=== PATIENT | male | born 1940 | race Caucasian/White ===

== ENCOUNTER → 2018-04-20 09:48 | Outpatient (CLI) | payer MEDICARE, OTHER, SELFPAY ==
[2018-04-20 12:01] LABS: Alanine Aminotransferase 32 IU/L (21-72); Albumin 4.8 g/dL (3.5-5.0); Albumin Globulin Ratio 1.3 (1.0-2.8); Alkaline Phosphatase 45 U/L (38-126); Aspartate Aminotransferase 31 IU/L (17-59); BUN Creatinine Ratio 15.8 (6-22); Bilirubin Total 0.6 mg/dL (0.2-1.3); Blood Urea Nitrogen 19 mg/dL (9-20); Calcium 10.1 mg/dL (8.4-10.2); Carbon Dioxide 28 mmol/L (22-32); Chloride 103 mmol/L (98-107); Cholesterol 173 mg/dL (140-199); Estimated Glomerular Filt Rate 58.7 mL/min (>60); Globulin 3.7 g/dL (1.7-4.1); Glucose 99 mg/dL (80-110); HDL Cholesterol 45 mg/dL (40-60); HEMOLYSIS 18 (0-50); LDL Cholesterol Calculated 95 mg/dL (<100); Potassium 5.2 mmol/L (3.4-5.1); Sodium 144 mmol/L (137-145); Total Protein 8.5 g/dL (6.3-8.2); Triglycerides 165 mg/dL (35-150)
== END ==
PROVIDERS: PCP Family Medicine; Visit Provider Family Medicine
DX: E78.2 Mixed hyperlipidemia (principal); I10 Essential (primary) hypertension
CPT/HCPCS: 36415; 80053; 80061

== ENCOUNTER 2018-09-19 14:15 | Emergency (ER) | payer MEDICARE, SELFPAY ==
[2018-09-19 14:18] VITALS: BP 191/63; PULSE 54; RESP 20; TEMP 36.7; O2SAT 98; BMI 30.7
--- NOTE | 2018-09-19 15:09 | ED.SOB ---
HPI - SOB/Dyspnea General Chief Complaint: Shortness of Breath/Dyspnea Stated Complaint: SOB Time Seen by Provider: 09/19/18 15:09 Source: patient Mode of arrival: ambulatory Limitations: no limitations History of Present Illness Patient is a 78-year-old male who is here for evaluation for 1 year of shortness of breath. Patient states that he went to go see his primary doctor today which he could not get in to see her. He states he went over to the walk-in clinic and he was told to come here to the emergency department because we ?had better test ?he states that this is what he was told by the walk-in clinic. He states that he has had shortness of breath when he exerts himself for the past year. Denies any chest pain. He states that he does feel like his symptoms have been worsening over the past several weeks to months. He is able to lay flat at night. Has been taking his medications. Related Data Home Medications Medication Instructions Recorded Confirmed aspirin 81 mg PO QDAY #30 tab 03/02/16 04/20/18 atenolol 25 mg PO DAILY 09/19/18 09/19/18 finasteride 5 mg PO DAILY 09/19/18 09/19/18 lisinopril 20 mg PO DAILY 09/19/18 09/19/18 simvastatin [Zocor] 20 mg PO DAILY 09/19/18 09/19/18 Previous Rx's Medication Instructions Recorded tamsulosin 0.4 mg capsule 0.4 mg PO BID #180 cap 08/16/18 Allergies Allergy/AdvReac Type Severity Reaction Status Date / Time No Known Drug Allergies Allergy Verified 04/20/18 08:58 Review of Systems Constitutional Denies fever(s) and Denies headache(s) ENT Ears, Nose, Mouth, and Throat: Denies headache(s) Cardiovascular Denies chest pain and Reports dyspnea on exertion Respiratory Reports dyspnea on exertion Gastrointestinal Gastrointestinal: Denies nausea and Denies vomiting Genitourinary Denies dysuria Musculoskeletal Denies myalgias and Denies arthralgias Integumentary/Breasts Denies rash Neurologic Denies headache(s) Hematologic/Lymphatic Denies easy bleeding and Denies easy bruising [facility] Medical History BPH (benign prostatic hyperplasia) (Acute) Hypertension (Acute) Social History Smoking Status: Former smoker Tobacco: How many years used: 20 alcohol intake: current (Rare) Social History Smoking Status: Former smoker Tobacco: How many years used: 20 alcohol intake: current (Rare) Exam Initial Vital Signs Initial Vital Signs: Vital Signs Temperature 98.0 F 09/19/18 14:18 Pulse Rate 54 L 09/19/18 14:18 Respiratory Rate 20 09/19/18 14:18 Blood Pressure 191/63 H 09/19/18 14:18 Pulse Oximetry 98 09/19/18 14:18 Const General: cooperative, comfortable, well developed, well groomed and No acute distress Orientation: alert, awake and oriented x3 HENMT Head: normal to inspection and normocephalic Resp Effort & Inspection: normal respiratory effort Auscultation: clear to auscultation bilaterally Cardio Rate: regular rate Rhythm: regular rhythm Pulses: radial pulses present GI Inspection: non-distended Palpation: soft, No firm and No tender Skin Lesions: no lesions Rashes: no rashes Neuro General: alert, awake and oriented x3 Cognition: normal cognition Speech: speech normal Extrem General: normal to inspection, capillary refill normal and No edema Psych Appearance: grossly normal and well kempt Course Orders Ordered: ED Orders 09/19/18 14:23 EKG-12 Lead Stat 09/19/18 15:26 XR chest 1V Stat 09/19/18 15:40 B Type Natriuretic Peptide Stat Basic Metabolic Panel Stat Complete Blood Count AUTO DIFF Stat Troponin I Stat Vital Signs - 8 hr 09/19/18 14:18 Temperature 98.0 F Pulse Rate 54 L Respiratory Rate 20 Blood Pressure 191/63 H Pulse Oximetry 98 MDM - SOB/Dyspnea Lab Data Attestation: I reviewed the patient's lab results. Result diagrams: 09/19/18 15:40 09/19/18 15:40 Lab Results 09/19/18 09/19/18 09/19/18 Range/Units 15:40 15:40 15:40 WBC 8.4 (4.5-11.0) X10^3/uL RBC 4.73 (4.5-5.9) X10^6/uL Hgb 14.9 (13.5-17.5) g/dL Hct 42.5 (41-53) % MCV 89.9 (80-100) fL MCH 31.5 (26-34) PG MCHC 35.0 (30-36) % RDW 13.7 (11.6-14.8) % Plt Count 133 L (150-400) X10^3/uL Neut % (Auto) 70.5 (50-75) % Lymph % (Auto) 20.8 L (25-40) % [place] % (Auto) 6.6 (3-14) % Eos % (Auto) 1.4 L (2-4) % Baso % (Auto) 0.7 (0-2) % Neut # (Auto) 5900 (8424-5145) /uL Lymph # (Auto) 1700 (5330-2917) /uL [place] # (Auto) 600 (0-900) /uL Eos # (Auto) 100 (0-450) /uL Baso # (Auto) 100 (0-100) /uL Sodium 139 (137-145) mmol/L Potassium 4.5 (3.4-5.1) mmol/L Chloride 105 (98-107) mmol/L Carbon Dioxide 24 (22-32) mmol/L BUN 22 H (9-20) mg/dL Creatinine 1.30 H (0.66-1.25) mg/dL Estimated GFR 53.5 L (>60) mL/min BUN/Creatinine Ratio 16.9 (6-22) Glucose 85 (80-110) mg/dL Calcium 9.4 (8.4-10.2) mg/dL Troponin I < 0.012 (0.01-0.034) ng/mL B-Natriuretic Peptide 108 H (<100) Imaging Data Chest x-ray: Radiologist's impression: [address] [address] XRay Report Signed Patient: Major Mills RMR#: [id number] : 1Acct:[id number] Age/Sex: 78 / MDate of Service: 09/19/18 Loc: ED Accession Number: [id number] Procedure: XR chest 1V Ordering Provider: Pacheco Sheehan D.O. PROCEDURE: XR CHEST 1V INDICATIONS: Shortness of breath TECHNIQUE: One view of the chest was acquired. COMPARISON: [facility], , CHEST 2 VIEW, 08/11/2017, 13:00. FINDINGS: Surgical changes and devices: None. Lungs and pleura: Prominent perihilar interstitial markings are identified in no focal consolidation, effusion, or pneumothorax is evident. Mediastinum: Mediastinal contours appear normal. Heart size is normal. There is aortic atherosclerosis. Bones and chest wall: No suspicious bony lesions. Overlying soft tissues appear unremarkable. IMPRESSION: Possible mild vascular congestion. No definite pneumonia. Dictated by: Mauri Da Silva M.D. on 09/19/2018 at 14:57 Approved by: Mauri Da Silva M.D. on 09/19/2018 at 15:03 ECG Data Attestation: I personally reviewed and interpreted this ECG as follows: Prior ECG tracings: not available for review Interpretation: Sinus bradycardia Ventricular rate of 52 Normal axis Normal intervals Normal QRS Normal QTC No ST T wave changes MDM Narrative Medical decision making narrative: Patient has had symptoms for the past year. No signs of pneumonia. BNP is unremarkable. lungs are clear. Not hypoxic or tachycardic in the ER. Will hold on further workup for now. Informed the patient he needed to talk with his primary doctor about obtaining pulmonary function test and/or an echocardiogram. Patient was given return precautions. He expressed understanding and agreement with plan. Discharge Plan Departure Patient Disposition: Home Clinical Impression: Dyspnea on exertion Instructions: DI for Shortness of Breath, How to Manage Shortness of Breath Activity Restrictions/Additional Instructions: I recommend that you contact your primary care doctor to discuss the indications for pulmonary function testing and or an echocardiogram. Continue all of your other medications as directed. Return to the emergency department for any new or worsening symptoms Prescriptions: No Action aspirin 81 MG tablet,delayed release (DR/EC) 81 mg PO QDAY Qty: 30 RF: 0 tamsulosin [Flomax] 0.4 mg capsule 0.4 mg PO BID Qty: 180 RF: 0 lisinopril 20 mg tablet 20 mg PO DAILY RF: 0 atenolol 25 mg tablet 25 mg PO DAILY RF: 0 simvastatin [Zocor] 20 mg tablet 20 mg PO DAILY RF: 0 finasteride 5 mg tablet 5 mg PO DAILY RF: 0 Referrals: Devorah Chaudhry DO [Primary Care Provider] -
--- NOTE | 2018-09-19 15:26 | DI.RAD.S_ITS ---
PROCEDURE: XR CHEST 1V INDICATIONS: Shortness of breath TECHNIQUE: One view of the chest was acquired. COMPARISON: [facility], , CHEST 2 VIEW, 08/11/2017, 13:00. FINDINGS: Surgical changes and devices: None. Lungs and pleura: Prominent perihilar interstitial markings are identified in no focal consolidation, effusion, or pneumothorax is evident. Mediastinum: Mediastinal contours appear normal. Heart size is normal. There is aortic atherosclerosis. Bones and chest wall: No suspicious bony lesions. Overlying soft tissues appear unremarkable. IMPRESSION: Possible mild vascular congestion. No definite pneumonia. Dictated by: Mauri Da Silva M.D. on 09/19/2018 at 14:57 Approved by: Mauri Da Silva M.D. on 09/19/2018 at 15:03
[2018-09-19 15:59] LABS: Add Manual Diff / Slide Review NO; Basophils Absolute Auto 100 /uL (0-100); Basophils Percent Auto 0.7 % (0-2); Eosinophils Absolute Auto 100 /uL (0-450); Eosinophils Percent Auto 1.4 % (2-4); Hematocrit 42.5 % (41-53); Hemoglobin 14.9 g/dL (13.5-17.5); Lymphocytes Absolute Auto 1700 /uL (1100-4500); Lymphocytes Percent Auto 20.8 % (25-40); Mean Corpuscular Hemoglobin 31.5 PG (26-34); Mean Corpuscular Volume 89.9 fL (80-100); Monocytes Absolute Auto 600 /uL (0-900); Monocytes Percent Auto 6.6 % (3-14); Neutrophils Absolute Auto 5900 /uL (1500-7000); Neutrophils Percent Auto 70.5 % (50-75); Platelet Count 133 X10^3/uL (150-400); Red Blood Cell Count 4.73 X10^6/uL (4.5-5.9); Red Cell Distribution Width 13.7 % (11.6-14.8); White Blood Cell Count 8.4 X10^3/uL (4.5-11.0)
[2018-09-19 16:19] LABS: B Type Natriuretic Peptide 108 (<100)
[2018-09-19 16:23] LABS: BUN Creatinine Ratio 16.9 (6-22); Blood Urea Nitrogen 22 mg/dL (9-20); Calcium 9.4 mg/dL (8.4-10.2); Carbon Dioxide 24 mmol/L (22-32); Chloride 105 mmol/L (98-107); Estimated Glomerular Filt Rate 53.5 mL/min (>60); Glucose 85 mg/dL (80-110); HEMOLYSIS 39 (0-50); Potassium 4.5 mmol/L (3.4-5.1); Sodium 139 mmol/L (137-145)
[2018-09-19 16:36] LABS: Troponin I < 0.012 ng/mL (0.01-0.034)
[2018-09-19 17:00] VITALS: BP 197/55; PULSE 52; RESP 18; O2SAT 98
== END 2018-09-19 17:14 | disposition home or self-care (01) ==
PROVIDERS: Emergency Provider Emergency Medicine; Family Provider Family Medicine; PCP Family Medicine
DX: R06.09 Other forms of dyspnea (principal)
CPT/HCPCS: 36591; 71045; 80048; 83880; 84484; 85025; 93005; 93010; 99282; 99285

== ENCOUNTER → 2018-09-26 09:30 | Outpatient (CLI) | payer MEDICARE, SELFPAY ==
--- NOTE | 2018-09-26 09:32 | DI.US.S_ITS ---
PROCEDURE: US CAROTID DOPPLER BI INDICATIONS: PVD TECHNIQUE: Color and pulse Doppler interrogation was performed of both carotid systems, with image documentation and velocity measurements. COMPARISON: [facility], , CAROTID ARTERY DOPPLER BILAT, 03/24/2017, 10:18. [facility], , CAROTID ARTERY DOPPLER BILAT, 10/08/2015, 11:12. FINDINGS: Stenosis calculations are based on SRU (Society of Radiologists in Ultrasound) criteria. Right side: Brachial blood pressure: 150/77 mm Hg. Common carotid artery peak systolic velocity: 51 cm/sec. Internal carotid artery peak systolic velocity: 120 cm/sec. Internal carotid artery end diastolic velocity: 40 cm/sec. External carotid artery peak systolic velocity: 515 cm/sec. ICA/CCA peak systolic ratio: 3.2. Benson scale imaging description: Heavy scattered plaque. Percent internal carotid artery stenosis: Less than 50%. Vertebral artery: Not visualized. Left side: Brachial blood pressure: 164/75 mm Hg. Common carotid artery peak systolic velocity: 112 cm/sec. Internal carotid artery peak systolic velocity: 150 cm/sec. Internal carotid artery end diastolic velocity: 33 cm/sec. External carotid artery peak systolic velocity: 173 cm/sec. ICA/CCA peak systolic ratio: 1.0. Benson scale imaging description: Heavy scattered plaque. Percent internal carotid artery stenosis: 50-69% stenosis is. Vertebral artery: Flow direction is antegrade. IMPRESSION: 1. Stable 50-69% left internal carotid artery stenosis. 2. Stable less than 50% right internal carotid artery stenosis. * Dictated by: Jeronimo Juarez [facility] Interpreted: Evaristo Srivastava MD on 09/26/2018 at 11:42 Approved by: Evaristo Srivastava M.D. on 09/26/2018 at 11:47
== END ==
PROVIDERS: PCP Family Medicine; Visit Provider Family Medicine
DX: I73.9 Peripheral vascular disease, unspecified (principal); I65.23 Occlusion and stenosis of bilateral carotid arteries
CPT/HCPCS: 93880

== ENCOUNTER → 2018-10-26 10:28 | Outpatient (CLI) | payer MEDICARE, SELFPAY ==
--- NOTE | 2018-11-16 17:00 | PM.PFT.1 ---
Pulmonary Function Test Referral & Results Date Patient Seen: 10/26/18 Requesting provider: Devorah Chaudhry Results: The spirometry demonstrates an FVC of 3.67 L which is 85% of predicted. The FEV1 was measured at 1.61 L which is 52% of predicted. The FEV1/FVC ratio was 44 which is 60% of predicted. Following the administration of bronchodilator there was 12% improvement in FEV1 and 42% improvement in FEF 25-75%. Lung volumes show an SVC of 3.60 L which is 78% of predicted. The diffusing capacity was measured at 15.22 which is 45% of predicted. No hemoglobin value was provided, so no correction for potential anemia could be made, if appropriate. The maximum voluntary ventilation was reduced Interpretation: This study demonstrates moderately severe obstructive lung disease based on reduction in FEV1. There is evidence of improvement following bronchodilator administration There is also mild restrictive lung disease present based on reduction SVC There is more significant disease at the capillary alveolar level based on reduction in diffusing capacity
== END ==
PROVIDERS: PCP Family Medicine; Visit Provider Family Medicine
DX: R06.09 Other forms of dyspnea (principal)
CPT/HCPCS: 94060; 94726; 94729

== ENCOUNTER → 2018-10-31 15:32 | Outpatient (CLI) | payer MEDICARE, SELFPAY ==
--- NOTE | 2018-10-31 15:32 | DI.ECHO.S_ITS ---
[facility]---------+ [facility] +---------+ : : [address] : : : [place], [place] : : : : [id number] : : : : Phone: [phone] Echocardiogram Report + + :Name: MARK PEÑALOZA Study Date: 10/31/2018 Height: 71 in : :[facility] Exam Location: IS Weight: 220 lb : : Gender: Male BSA: 2.2 m2 : :: 1940 Age: 78 yrs BP: 170/80 mmHg: :Reason For Study: PHILLIPS : : Performed By: Maru Page : :Referring: DARVIN ALANIS : + + Interpretation Summary 1) Normal left ventricular size, wall motion, and systolic function (EF 65- 70%). 2) Normal right ventricular size and function. 3) No significant valvular abnormalities. 4) Pulmonary artery pressures cannot be estimated because of the lack of a measurable TR jet velocity. 5) Hypertension present during the study (BP 170/80mmHg). 6) No prior Echo available for comparison. Procedure: A two-dimensional transthoracic echocardiogram with color flow and Doppler was performed. The study quality was technically adequate. There is no prior echocardiogram noted for this patient. The patient was in normal sinus rhythm during the exam. Left Ventricle: The left ventricle is normal in size. Left ventricular wall thickness is at the upper limits of normal. The ejection fraction is estimated to be 65-70%. Left ventricular systolic function is normal without focal wall motion abnormalities. Diastolic parameters suggest a relaxation abnormality of the left ventricle, consistent with probable normal filling pressures. Right Ventricle: The right ventricle is normal in size and function. Atria: The left atrium is moderately dilated. Right atrial size is normal. There is no Doppler evidence for an interatrial shunt. Mitral Valve: The mitral valve is normal in structure and function. There is no mitral regurgitation noted. Aortic Valve: The aortic valve is trileaflet. The aortic valve is slightly calcified. The aortic valve opens well. There is no aortic valve stenosis. There is trace aortic regurgitation. Tricuspid Valve: The tricuspid valve is normal in structure and function. There is a trace or physiologic amount of tricuspid regurgitation. Pulmonary artery pressures cannot be estimated because of the lack of a measurable TR jet velocity. Pulmonic Valve: The pulmonic valve is not well visualized. There is a trace or physiologic amount of pulmonic regurgitation. Great Vessels: The aortic root is normal size. The ascending aorta is at the upper limits of normal in size. The pulmonary artery is not well visualized, but is probably normal size. The IVC is of normal diameter and collapses greater than 50% with a sniff. This suggests a low right atrial pressure of 3 mm Hg. Pericardium/ Pleura There is no pericardial effusion. There is no pleural effusion. MMode/2D Measurements & Calculations LVIDd: 4.9 cm Ao root diam: 3.7 cm LVIDs: 2.6 cm asc Aorta Diam: 3.5 cm FS: 47.1 % IVSd: 1.0 cm LVPWd: 1.2 cm LV crawford. diameter/BSA (cm/m^2): 2.2 LV sys. diameter/BSA (cm/m^2): 1.2 LA A2 area: 22.1 cm2 RA long axis: 5.1 cm LA A4 area: 25.1 cm2 RA area: 15.0 cm2 LA length (vol): 5.7 cm RA vol: 37.7 ml LA vol: 82.6 ml RA : 17.2 ml/m2 LA vol index: 37.6 ml/m2 IVC diam: 1.7 cm RVD1 (basal): 3.8 cm TAPSE: 2.3 cm Doppler Measurements & Calculations Ao V2 max: 129.2 cm/sec LVOT Max Jason: 105.1 cm/sec Ao V2 mean: 97.3 cm/sec LV V1 max P.4 mmHg Ao max P.7 mmHg LV V1 VTI: 25.9 cm Ao mean P.0 mmHg sev ratio: 0.94 Ao V2 VTI: 27.5 cm MV E max jason: 56.7 cm/sec PA V2 max: 79.1 cm/sec MV A max jason: 82.6 cm/sec PA V2 mean: 51.0 cm/sec MV E/A: 0.69 PA mean P.2 mmHg Med Peak E' Jason: 4.3 cm/sec PA Accel Time: 0.07 sec E/E' med: 13.1 Lat Peak E' Jason: 6.4 cm/sec E/E' lat: 8.9 E/e' average: 11.0 MV dec time: 0.25 sec MV P1/2t: 72.6 msec MV P1/2t max jason: 56.5 cm/sec MVA(P1/2t): 3.0 cm2 Reading Physician:07:09 PM
== END ==
PROVIDERS: PCP Family Medicine; Visit Provider Nurse Practitioner Family
DX: R06.09 Other forms of dyspnea (principal); I77.89 Other specified disorders of arteries and arterioles
CPT/HCPCS: 93306

== ENCOUNTER → 2019-02-27 07:59 | Outpatient (CLI) | payer MEDICARE, SELFPAY ==
--- NOTE | 2019-02-27 08:01 | DI.RAD.S_ITS ---
PROCEDURE: XR CERVICAL SPINE 2V OR 3V INDICATIONS: Cervical impingement TECHNIQUE: 3 view(s) of the cervical spine were acquired. COMPARISON: None. FINDINGS: Bones: There is minimal anterolisthesis of C2 on C3. Decreased intervertebral disc space and degenerative endplate changes throughout cervical spine is seen more prominent at C3-4 and C4-5 levels. There is no acute compression fracture. Bilateral uncinate hypertrophic changes are seen throughout cervical spine. The lateral masses of C1 appear intact on the odontoid view. No suspicious bony lesions. Soft tissues: No prevertebral soft tissue swelling. IMPRESSION: Degenerative disc disease and bilateral facet hypertrophic changes throughout cervical spine. No acute compression fracture. Minimal anterolisthesis of C2 on C3. Dictated by: Francisco Ny M.D. on 02/27/2019 at 11:11 Approved by: Francisco Ny M.D. on 02/27/2019 at 11:26
== END ==
PROVIDERS: PCP Family Medicine; Visit Provider Family Medicine
DX: M47.812 Spondylosis without myelopathy or radiculopathy, cervical region (principal); M50.31 Other cervical disc degeneration, high cervical region
CPT/HCPCS: 72040

== ENCOUNTER → 2019-03-07 12:59 | Outpatient (CLI) | payer MEDICARE, SELFPAY ==
--- NOTE | 2019-03-07 12:59 | DI.MRI.S_ITS ---
PROCEDURE: MR CERVICAL SPINE WO CON INDICATIONS: falls TECHNIQUE: Noncontrast sagittal T1 spin echo and T2 fast spin echo, sagittal STIR, foraminal oblique sagittal T2 fast spin echo, and axial gradient echo or T2 fast spin echo through the cervical spine. COMPARISON: None. FINDINGS: Image quality: Excellent. Alignment and Curvature: There is straightening of normal cervical lordosis. No spondylolisthesis is seen. Bone Marrow: There is bony fusion at C5-C7 levels. No gross marrow edema. No acute compression fracture. Spinal Cord: Visualized spinal cord has normal size and signal. No cerebellar tonsillar herniation. Paraspinous Soft Tissues: No paravertebral masses. Prevertebral soft tissues are normal in thickness. C2-C3: Normal appearance. C3-C4: Decreased intervertebral disc space and degenerative endplate changes are seen. There is broad-based disc bulge and superimposed central disc herniation. Bilateral uncinate hypertrophic changes are seen. There is moderate central canal stenosis and severe bilateral neuroforaminal narrowing. C4-C5: Decreased intervertebral disc space and degenerative endplate changes are seen. Broad-based disc bulge and bilateral uncinate hypertrophic changes are noted causing severe central canal stenosis and bilateral neuroforaminal narrowing. C5-C6: Complete bony fusion is noted at this level. Prominent dorsal marginal osteophyte formation is seen causing [id number] central canal stenosis and right worse than left bilateral neuroforaminal narrowing. C6-C7: Complete bony fusion is seen at this level. Prominent dorsal osteophyte formation at this level is seen. Bilateral facet hypertrophic changes also noted. There is moderate central canal stenosis and right worse than left bilateral neuroforaminal narrowing. C7-T1: Decreased intervertebral disc space and degenerative endplate changes are seen. Central disc herniation and bilateral facet hypertrophic changes are noted causing moderate central canal stenosis and [id number] bilateral neural foramina narrowing. IMPRESSION: 1. Complete bony fusion at C5-C7 levels. No marrow edema. No acute compression fracture or spondylolisthesis. 2. No Chiari malformation. No abnormal cervical spinal cord signal. 3. Degenerative disc bulge and bilateral facet hypertrophic changes at C3-4, C4-5 and C7-T1 levels causing moderate to severe central canal stenosis and bilateral neuroforaminal narrowing as above. 4. Prominent dorsal osteophyte formation and bilateral facet hypertrophic changes at C5-6 and C6-7 levels causing moderate central canal stenosis and bilateral neural foramina narrowing. Dictated by: Francisco Ny M.D. on 03/07/2019 at 17:56 Approved by: Francisco Ny M.D. on 03/07/2019 at 18:01
== END ==
PROVIDERS: PCP Family Medicine; Visit Provider Family Medicine
DX: M47.812 Spondylosis without myelopathy or radiculopathy, cervical region (principal); M43.22 Fusion of spine, cervical region; M50.11 Cervical disc disorder with radiculopathy, high cervical region; M48.02 Spinal stenosis, cervical region; Z91.81 History of falling
CPT/HCPCS: 72141

== ENCOUNTER → 2019-04-29 08:05 | Outpatient (CLI) | payer MEDICARE, SELFPAY ==
[2019-04-29 08:40] LABS: Alanine Aminotransferase 22 IU/L (<50); Albumin 4.4 g/dL (3.5-5.0); Albumin Globulin Ratio 1.4 (1.0-2.8); Alkaline Phosphatase 47 U/L (38-126); Aspartate Aminotransferase 27 IU/L (17-59); BUN Creatinine Ratio 15.7 (6-22); Bilirubin Total 0.5 mg/dL (0.2-1.3); Blood Urea Nitrogen 22 mg/dL (9-20); Calcium 9.9 mg/dL (8.4-10.2); Carbon Dioxide 28 mmol/L (22-32); Chloride 107 mmol/L (98-107); Cholesterol 193 mg/dL (140-199); Globulin 3.2 g/dL (1.7-4.1); Glucose 110 mg/dL (80-110); HDL Cholesterol 42 mg/dL (40-60); HEMOLYSIS < 15 (0-50); LDL Cholesterol Calculated 125 mg/dL (<100); Potassium 4.7 mmol/L (3.4-5.1); Sodium 142 mmol/L (137-145); Total Protein 7.6 g/dL (6.3-8.2); Triglycerides 132 mg/dL (35-150)
[2019-04-29 10:23] LABS: Creatinine Urine Random 113.1 mg/dL
[2019-04-29 10:43] LABS: Microalbumi Creatinin Ratio Ur 195.4 ug/mg CR (<30); Microalbumin Urine Random 22.1 mg/dL (0-1.6)
== END ==
PROVIDERS: Family Provider Family Medicine; PCP Family Medicine; Visit Provider Physician Assistant
DX: E78.2 Mixed hyperlipidemia (principal); I10 Essential (primary) hypertension; I73.9 Peripheral vascular disease, unspecified; N40.1 Benign prostatic hyperplasia with lower urinary tract symptoms; R35.0 Frequency of micturition
CPT/HCPCS: 36415; 80053; 80061; 82043; 82570

== ENCOUNTER → 2019-06-04 07:21 | Outpatient (CLI) | payer MEDICARE, SELFPAY ==
--- NOTE | 2019-06-04 07:22 | DI.US.S_ITS ---
PROCEDURE: US RENAL COMPLETE INDICATIONS: FOLLOW UP CYST TECHNIQUE: Real-time scanning was performed of the kidneys and bladder, with image documentation. COMPARISON: [facility], CT, IVP (ABD & PEL WWO CONTRAST), 05/18/2016, 11:13. FINDINGS: Kidneys: Kidneys are normal in size. Right kidney measures 13.0 cm long; left kidney measures 13.1 cm long. Right renal cortical thickness is 1.1 cm; left renal cortical thickness is 1.1 cm. Renal cortical echotexture is normal. No hydronephrosis or nephrolithiasis. No suspicious solid mass lesions. There is a right midpole cyst which measures 2.7 x 2.5 x 2.0 cm (this cyst measured 2.5 x 2.5 x 2.4 cm on the comparison CT dated 05/18/16), and a left midpole cyst which measures 0.9 x 0.8 x 1.0 cm (previously measured 0.8 x 0.9 x 1.0 cm on the comparison CT from 2015). Bladder: Pre-void bladder volume is 108 mL. Post-void residual is 14 mL. Pre-void images demonstrate no intraluminal masses or stones. On pre-void images, a lateral ureteral jets are noted with color Doppler interrogation. (Of note, ureteral jets may not be detectable in up to 25% of cases due to insufficient differences in specific gravity between ureteral and bladder urine). Miscellaneous: No free pelvic fluid. IMPRESSION: 1. No hydronephrosis or nephrolithiasis. 2. Overall similar size of the bilateral renal cysts when compared with prior CT dated 05/18/16 when accounting for variation in imaging modality. Dictated by: Crys Bucio M.D. on 06/04/2019 at 13:26 Approved by: Crys Bucio M.D. on 06/04/2019 at 13:30
== END ==
PROVIDERS: PCP Family Medicine; Visit Provider Family Medicine
DX: N28.1 Cyst of kidney, acquired (principal)
CPT/HCPCS: 76770

== ENCOUNTER → 2019-08-12 09:32 | Outpatient (CLI) | payer MEDICARE, SELFPAY ==
[2019-08-12 09:44] LABS: Bacteria Urine None Seen
[2019-08-12 10:02] LABS: Hematocrit 43.8 % (41-53); Hemoglobin 15.2 g/dL (13.5-17.5)
[2019-08-12 10:38] LABS: BUN Creatinine Ratio 19.1 (6-22); Blood Urea Nitrogen 21 mg/dL (9-20); Calcium 9.5 mg/dL (8.4-10.2); Carbon Dioxide 27 mmol/L (22-32); Chloride 106 mmol/L (98-107); Estimated Glomerular Filt Rate > 60.0 mL/min (>60); Glucose 107 mg/dL (80-110); HEMOLYSIS < 15 (0-50); Potassium 4.5 mmol/L (3.4-5.1); Sodium 143 mmol/L (137-145)
[2019-08-12 12:20] LABS: Appearance Urine UA CLEAR; Bilirubin Urine UA NEGATIVE (NEGATIVE); Color Urine UA YELLOW; Glucose Urine UA NEGATIVE (Negative); Ketones Urine UA NEGATIVE (NEGATIVE); Leukocyte Esterase Urine UA NEGATIVE (NEGATIVE); Nitrite Urine UA NEGATIVE (Negative); Occult Blood Urine UA NEGATIVE (Negative); Protein Urine UA 1+ (Negative); Specific Gravity Urine UA 1.025 (1.000-1.035); Urobilinogen Urine UA 0.2 E.U./dL (0.2)
[2019-08-12 12:52] LABS: RBC Urine 0-1/HPF (0-5/HPF); Squamous Epithelial Cell Urine 0-1 /HPF (0-5/HPF); WBC Urine 0-1/HPF (0-5/HPF)
[2019-08-12 12:53] LABS: Culture Indicated Urine Cult Not Indicated
[2019-08-12 15:27] LABS: Creatinine Urine Random 112.4 mg/dL; Protein (Total) Urine Random 44 mg/dL (0-12); Protein Creatinine Ratio Urine 0.39 GRAM/24H
[2019-08-15 14:23] LABS: Albumin 73 %; Protein/ Creatinine Ratio 452 mg/g creat (22-128); Total Urine Protein 48 mg/dL (5-25); Urine Creatinine, Random 106 mg/dL (20-320)
[2019-08-15 15:29] LABS: Albumin 4.1 g/dL (3.8-4.8); Alpha 1 Globulin 0.3 g/dL (0.2-0.3); Alpha 2 Globulin 0.7 g/dL (0.5-0.9); Beta 1 Globulin 0.4 g/dL (0.4-0.6); Gamma Globulin 0.9 g/dL (0.8-1.7)
[2019-08-16 07:32] LABS: Parathyroid Hormone Int 41 pg/mL (14-64)
== END ==
PROVIDERS: PCP Family Medicine; Referring Provider Student in an Organized Health Care Education/Training Program; Visit Provider Student in an Organized Health Care Education/Training Program
DX: N05.9 Unspecified nephritic syndrome with unspecified morphologic changes (principal); D64.9 Anemia, unspecified; N25.81 Secondary hyperparathyroidism of renal origin; D47.2 Monoclonal gammopathy; N30.00 Acute cystitis without hematuria; R80.9 Proteinuria, unspecified
CPT/HCPCS: 80048; 81001; 82570; 83970; 84155; 84156; 84165; 84166; 85014; 85018; 86335; 87086

== ENCOUNTER → 2019-10-10 12:02 | Outpatient (CLI) | payer MEDICARE, SELFPAY ==
--- NOTE | 2019-10-10 12:04 | DI.MRI.S_ITS ---
PROCEDURE: MR CERVICAL SPINE WO CON INDICATIONS: Progressive neck discomfort, history of cervical fusion TECHNIQUE: Noncontrast sagittal T1 spin echo and T2 fast spin echo, sagittal STIR, foraminal oblique sagittal T2 fast spin echo, and axial gradient echo or T2 fast spin echo through the cervical spine. COMPARISON: [facility], CR, XR CERVICAL SPINE 2V OR 3V, 02/27/2019, 7:59. [facility], MR, MR CERVICAL SPINE WO CON, 03/07/2019, 13:17. FINDINGS: Image quality: This examination is limited by involuntary motion artifact. Alignment and Curvature: There is straightening of the normal cervical lordosis. No focal AP alignment abnormality is seen. Bone Marrow: Marrow demonstrates normal overall signal. Spinal Cord: Visualized spinal cord has normal size and signal. No cerebellar tonsillar herniation. Paraspinous Soft Tissues: No paravertebral masses. Prevertebral soft tissues are normal in thickness. Vertebral body fusion can be seen C5-C7, as before. C2-C3: Mild loss of disc height is seen. Loss of disc signal is seen. Moderate disc osteophyte complex is seen, which is eccentric to the right. There is moderate left-sided and moderate right-sided neural foraminal narrowing seen. There is moderate to severe left-sided and moderate right-sided neural foraminal narrowing seen. Mild central canal narrowing is seen. When comparison is made with the prior examination, these findings are similar. C3-C4: Moderate to severe loss of disc height and disc signal can be seen. Reactive marrow endplate changes are seen, which are hyperintense on T1-weighted and T2-weighted imaging and most consistent with fatty metaplasia (Modic type II changes). Moderate to prominent disc osteophyte complex is seen. Moderate facet hypertrophy is seen, left worse than right. There is moderate to severe bilateral neural foraminal narrowing seen. Moderate central canal narrowing is seen. There is associated mass effect upon the ventral spinal cord. No significant change from the prior. C4-C5: Moderate to severe loss of disc height and disc signal can be seen. Reactive marrow endplate changes are seen, which are hyperintense on T1-weighted and T2-weighted imaging and most consistent with fatty metaplasia (Modic type II changes). Moderate to prominent disc osteophyte complex is seen. Uncovertebral joint hypertrophy is seen at this level. Moderate facet joint hypertrophy is seen. Moderate to severe bilateral neural foraminal narrowing can be seen. Moderate to severe central canal narrowing is seen, position mass effect upon the ventral spinal cord, as on series 5 image 24. Slight progression compared to the prior examination. C5-C6: Vertebral body fusion is seen at this level. Moderate disc osteophyte complex is seen, which is eccentric to the right. There is a disc osteophyte protrusion seen within the right lateral recess and extending into the right foraminal region, as on series 5 image 29. There is at least moderate right-sided and mild left-sided neural foraminal narrowing seen. Moderate to severe central canal narrowing is seen, with associated mass effect upon the ventral spinal cord. No significant change from the prior. C6-C7: Vertebral body fusion is seen at this level. Moderate disc osteophyte complex is seen, with a moderate central disc osteophyte protrusion. At least moderate bilateral neural foraminal narrowing is seen. Moderate central canal narrowing is seen, with associated ventral cord flattening. Stable from the prior study. C7-T1: Moderate disc osteophyte complex is seen, with a central disc osteophyte protrusion. At least moderate facet hypertrophy is seen at this level. No significant neural foraminal narrowing is seen. Moderate central canal narrowing is seen, with mild mass effect upon the ventral spinal cord. No significant change from the prior. IMPRESSION: C5-C7 vertebral body fusion. Multiple levels of prominent cervical spine degenerative change are seen, which are slightly progressed at C4-C5 level compared to 2019, yet otherwise appears similar. Dictated by: Telly Vick M.D. on 10/10/2019 at 12:12 Approved by: Telly Vick M.D. on 10/10/2019 at 12:19
== END ==
PROVIDERS: PCP Family Medicine; Referring Provider Family Medicine; Visit Provider Family Medicine
DX: M54.2 Cervicalgia (principal); M47.812 Spondylosis without myelopathy or radiculopathy, cervical region; M43.02 Spondylolysis, cervical region; Z98.1 Arthrodesis status
CPT/HCPCS: 72141

== ENCOUNTER 2019-11-15 14:25 | Emergency (ER) | payer MEDICARE, SELFPAY ==
--- NOTE | 2019-11-15 14:31 | ED.GENADULT ---
HPI - General Adult General Chief complaint: Arrhythmia/Palpitations Stated complaint: low pulse/ dizziness/ per phys Time Seen by Provider: 11/15/19 14:31 Source: patient and family () Mode of arrival: Ambulatory Limitations: no limitations History of Present Illness HPI narrative: Patient is a 79-year-old male. Here for evaluation of lightheadedness and bradycardia and shortness of breath on exertion. Patient has had issues with bradycardia in the past. He has been on atenolol in the past. Approximately 1 month ago stopped his atenolol by his primary provider to see whether not this would improve his bradycardia issues which seem to be more of a problem in the morning then in the afternoon. This did not appear to stop his symptoms. He was started on amlodipine. He did state that after starting on the amlodipine he felt better for short period of time but really over the past several days/weeks has noticed that he has had more dyspnea on exertion and lightheaded with sitting upper standing. Has not passed out. No chest pain. No lower extremity swelling. Today he went to his primary care doctor's office to get his blood pressure checked because he felt that his symptoms were worsening. After having his blood pressure checked he was sent to the emergency department for evaluation. Related Data Home Medications Medication Instructions Recorded Confirmed aspirin 81 mg PO QDAY #30 tab 03/02/16 10/28/19 Previous Rx's Medication Instructions Recorded simvastatin 20 mg tablet 20 mg PO DAILY #90 tab 05/30/19 albuterol sulfate 90 mcg/actuation 2 puff INHALATION Q4-6H PRN #8 gram 06/06/19 aerosol inhaler tamsulosin 0.4 mg capsule 0.4 mg PO BID #180 cap 07/15/19 finasteride 5 mg tablet 5 mg PO DAILY #90 tab 07/29/19 amlodipine 2.5 mg tablet 2.5 mg PO BID #180 tab 10/22/19 lisinopril 20 mg tablet 20 mg PO DAILY #90 tab 10/22/19 lisinopril 20 1 tab PO DAILY #90 tab 10/22/19 mg-hydrochlorothiazide 12.5 mg tablet Allergies Allergy/AdvReac Type Severity Reaction Status Date / Time No Known Drug Allergies Allergy Verified 10/28/19 08:22 Review of Systems Constitutional Constitutional: Denies fever(s), Denies frequent falls and Denies headache(s) ENT Ears, Nose, Mouth, and Throat: Denies headache(s) and Denies sore throat Cardiovascular Cardiovascular: Denies chest pain, Denies rapid heart rate, Denies irregular heart rhythm, Reports lightheadedness and Reports dyspnea on exertion Comments: Slow heart rate Respiratory Respiratory: Denies cough and Reports dyspnea on exertion Gastrointestinal Gastrointestinal: Denies abdominal pain, Denies change in bowel habits, Denies diarrhea and Denies nausea Genitourinary Genitourinary: Denies dysuria Genitourinary: Denies dysuria Musculoskeletal Musculoskeletal: Denies arthralgias and Denies deformity Integumentary/Breasts Skin/Breast: Denies rash Neurologic Neurologic: Denies frequent falls and Denies headache(s) Hematologic/Lymphatic Hematologic/Lymphatic: Denies easy bleeding and Denies easy bruising Allergic/Immunologic Allergic/Immunologic: Denies urticaria Patient History Medical History BPH (benign prostatic hyperplasia) (Acute) Bradycardia (Acute) Hypertension (Acute) Social History Smoking Status: Former smoker Tobacco: How many years used: 20 alcohol intake: current Smoking Status: Former smoker alcohol intake frequency: holidays/special occasions only Substance Use Type: does not use Exam Initial Vital Signs Initial Vital Signs: Vital Signs Temperature 98.6 F 11/15/19 14:32 Pulse Rate 41 L 11/15/19 14:32 Respiratory Rate 16 11/15/19 14:32 Blood Pressure 180/81 H 11/15/19 14:32 Pulse Oximetry 98 11/15/19 14:32 Const General: cooperative, comfortable and well developed Limitations: mental status not altered [facility] Head: normal to inspection and normocephalic Resp Effort & Inspection: normal respiratory effort Auscultation: clear to auscultation bilaterally Cardio Rate: bradycardic Rhythm: regular rhythm Pulses: radial pulses present GI Inspection: non-distended Palpation: soft and No firm Back/Spine/Pelvis Back: normal to inspection Skin Lesions: no lesions Rashes: no rashes Neuro General: patient alert, patient awake and patient oriented x3 Cognition: normal cognition Speech: speech normal Extrem General: normal to inspection and capillary refill normal Psych Appearance: grossly normal and well kempt Scores G[facility] Bandera coma scale eye opening: Spontaneous Miguel coma scale verbal response: Orientated Bandera coma scale motor response: Obey commands Miguel coma scale total score: 15 Course Orders Ordered: ED Orders 11/15/19 14:28 EKG-12 Lead Stat 11/15/19 14:37 Complete Blood Count AUTO DIFF Stat Comprehensive Metabolic Panel Stat Lipase Stat Partial Thromboplastin Time Stat Prothrombin Time INR Stat Troponin I Stat 11/15/19 14:54 EKG-12 Lead Stat Sodium Chloride (Normal Saline 0.9%) 1,000 mls @ 125 mls/hr IV CONT KRISHAN Last Admin: 11/15/19 14:54 Dose: 125 mls/hr Documented by: SRAVANTHI Vital Signs Vital signs: Vital Signs - 8 hr 11/15/19 14:32 11/15/19 15:01 Temperature 98.6 F Pulse Rate 41 L 63 Respiratory Rate 16 16 Blood Pressure 180/81 H Blood Pressure [Left Arm] 134/85 Pulse Oximetry 98 97 Medical Decision Making Lab Data Lab results reviewed: Yes I reviewed the patient's lab results. Result diagrams: 11/15/19 14:37 11/15/19 14:37 Labs: Lab Results 11/15/19 11/15/19 11/15/19 Range/Units 14:37 14:37 14:37 WBC 7.6 (4.5-11.0) X10^3/uL RBC 4.44 L (4.5-5.9) X10^6/uL Hgb 14.3 (13.5-17.5) g/dL Hct 39.8 L (41-53) % MCV 89.8 (80-100) fL MCH 32.1 (26-34) PG MCHC 35.8 (30-36) % RDW 13.1 (11.6-14.8) % Plt Count 148 L (150-400) X10^3/uL Neut % (Auto) 66.1 (50-75) % Lymph % (Auto) 24.2 L (25-40) % Reagan % (Auto) 6.8 (3-14) % Eos % (Auto) 1.9 L (2-4) % Baso % (Auto) 1.0 (0-2) % Neut # (Auto) 5000 (4117-0207) /uL Lymph # (Auto) 1800 (5113-2556) /uL Reagan # (Auto) 500 (0-900) /uL Eos # (Auto) 100 (0-450) /uL Baso # (Auto) 100 (0-100) /uL PT 13.0 H (10.1-12.7) SECONDS INR 1.1 (0.9-1.3) APTT 34 (26.4-36.2) SECONDS Sodium 139 (137-145) mmol/L Potassium 4.7 (3.4-5.1) mmol/L Chloride 108 H (98-107) mmol/L Carbon Dioxide 19 L (22-32) mmol/L BUN 46 H (9-20) mg/dL Creatinine 1.70 H (0.66-1.25) mg/dL Estimated GFR 39.2 L (>60) mL/min BUN/Creatinine Ratio 27.1 H (6-22) Glucose 121 H (80-110) mg/dL Calcium 9.6 (8.4-10.2) mg/dL Total Bilirubin 0.6 (0.2-1.3) mg/dL AST 27 (17-59) IU/L ALT 22 (<50) IU/L Alkaline Phosphatase 42 (38-126) U/L Troponin I 0.020 (0.01-0.034) ng/mL Total Protein 7.8 (6.3-8.2) g/dL Albumin 4.5 (3.5-5.0) g/dL Globulin 3.3 (1.7-4.1) g/dL Albumin/Globulin Ratio 1.4 (1.0-2.8) Lipase 120 (23-300) U/L ECG Data Attestation: I personally reviewed and interpreted this ECG as follows: Prior ECG tracings: not available for review Interpretation: Third-degree heart block Ventricular rate of 41 QRS 113 milliseconds Repeat EKG Sinus rhythm Ventricular rate is 63 Normal QRS Normal QTC No ST T wave changes MDM Narrative Medical decision making narrative: Patient arrived in a third-degree heart block. However was not hypotensive. Was mentating without problems. While he was waiting in the emergency department he did revert back to a sinus rhythm with a heart rate in the 60s. His blood pressure improved to a systolic in the 130s. Discussed the case with Dr. Downey with cardiology at [facility] who agrees the patient needs to be transferred for pacemaker placement. While waiting for hospitalist call Back patient stood up to use bedside urinal and again reverted back to third-degree heart block. Again was not hypotensive. Was mentating without problems. Was not hypoxic. Reported no chest pain. I discussed the case with Dr. Deal with hospitalist service at [facility] who accepts the patient for transport. Patient is currently stable for transport. Will continue to monitor. We have not had to give him atropine nor any pacing. Discussed the transfer with the patient. He expressed understanding agreement. Discharge Plan Departure Patient Disposition: [facility] Clinical Impression: Heart block AV third degree Hypertension Qualifiers: Hypertension type: unspecified Qualified Code(s): I10 - Essential (primary) hypertension Prescriptions: No Action albuterol sulfate 90 mcg/actuation HFA aerosol inhaler 2 puff INHALATION Q4-6H PRN (Reason: shortness of breath) Qty: 8 RF: 0 aspirin 81 MG tablet,delayed release (DR/EC) 81 mg PO QDAY Qty: 30 RF: 0 simvastatin [Zocor] 20 mg tablet 20 mg PO DAILY Qty: 90 RF: 1 tamsulosin [Flomax] 0.4 mg capsule 0.4 mg PO BID Qty: 180 RF: 0 finasteride 5 mg tablet 5 mg PO DAILY Qty: 90 RF: 1 amlodipine 2.5 mg tablet 2.5 mg PO BID Qty: 180 RF: 1 lisinopril 20 mg tablet 20 mg PO DAILY Qty: 90 RF: 3 lisinopril-hydrochlorothiazide 20-12.5 mg tablet 1 tab PO DAILY Qty: 90 RF: 3 Referrals: Deep Braswell, [Primary Care Provider] -
[2019-11-15 14:32] VITALS: BP 180/81; PULSE 41; RESP 16; TEMP 37; O2SAT 98; BMI 28.7
[2019-11-15 14:44] LABS: Add Manual Diff / Slide Review NO; Basophils Absolute Auto 100 /uL (0-100); Eosinophils Absolute Auto 100 /uL (0-450); Eosinophils Percent Auto 1.9 % (2-4); Hematocrit 39.8 % (41-53); Hemoglobin 14.3 g/dL (13.5-17.5); Lymphocytes Absolute Auto 1800 /uL (1100-4500); Lymphocytes Percent Auto 24.2 % (25-40); Mean Corpuscular HGB Conc 35.8 % (30-36); Mean Corpuscular Hemoglobin 32.1 PG (26-34); Mean Corpuscular Volume 89.8 fL (80-100); Monocytes Absolute Auto 500 /uL (0-900); Monocytes Percent Auto 6.8 % (3-14); Neutrophils Absolute Auto 5000 /uL (1500-7000); Neutrophils Percent Auto 66.1 % (50-75); Platelet Count 148 X10^3/uL (150-400); Red Blood Cell Count 4.44 X10^6/uL (4.5-5.9); Red Cell Distribution Width 13.1 % (11.6-14.8); White Blood Cell Count 7.6 X10^3/uL (4.5-11.0)
[2019-11-15 14:51] LABS: INR 1.1 (0.9-1.3)
[2019-11-15 14:54] LABS: PTT Partial Thromboplastin Tim 34 SECONDS (26.4-36.2)
[2019-11-15] MEDS: SODIUM CHLORIDE 0.9% 1,000 ML 125 ML IV (14:54)
[2019-11-15 14:58] LABS: Alanine Aminotransferase 22 IU/L (<50); Albumin 4.5 g/dL (3.5-5.0); Albumin Globulin Ratio 1.4 (1.0-2.8); Alkaline Phosphatase 42 U/L (38-126); Aspartate Aminotransferase 27 IU/L (17-59); BUN Creatinine Ratio 27.1 (6-22); Bilirubin Total 0.6 mg/dL (0.2-1.3); Blood Urea Nitrogen 46 mg/dL (9-20); Calcium 9.6 mg/dL (8.4-10.2); Carbon Dioxide 19 mmol/L (22-32); Chloride 108 mmol/L (98-107); Estimated Glomerular Filt Rate 39.2 mL/min (>60); Globulin 3.3 g/dL (1.7-4.1); Glucose 121 mg/dL (80-110); HEMOLYSIS 17 (0-50); Lipase 120 U/L (23-300); Potassium 4.7 mmol/L (3.4-5.1); Sodium 139 mmol/L (137-145); Total Protein 7.8 g/dL (6.3-8.2)
[2019-11-15 15:01] VITALS: BP 134/85; PULSE 63; RESP 16; O2SAT 97
--- NOTE | 2019-11-15 15:21 | PC.NURSE ---
1500; pt noted to have transitioned himself to NSR 60's. MD made aware. repeat EKG obtained. transition strip in chart.
[2019-11-15 16:00] VITALS: BP 135/64; PULSE 57; O2SAT 99
--- NOTE | 2019-11-15 16:18 | PC.NURSE ---
Pt converted back into a 3rd degree block while moving to void. pt denies symptoms at this time. MD at bedside. Pt aware of transfer to [facility]
--- NOTE | 2019-11-15 16:33 | PC.NURSE ---
Pads applied. Code cart at bedside. pt talking to on cell phone
[2019-11-15 16:45] VITALS: PULSE 60; RESP 14; O2SAT 99
[2019-11-15 17:06] VITALS: BP 135/64; PULSE 59; RESP 16; O2SAT 97
--- NOTE | 2019-11-23 19:47 | PC.NURSE ---
IVF NS @ 125 stopped at the time of pt transfer to [facility] at 1706
== END 2019-11-15 17:07 | disposition short-term general hospital (02) ==
PROVIDERS: Emergency Provider Emergency Medicine; PCP Family Medicine
DX: I44.2 Atrioventricular block, complete (principal); I10 Essential (primary) hypertension
CPT/HCPCS: 36415; 80053; 83690; 84484; 85025; 85610; 85730; 93005; 93010; 96360; 96361; 99284; 99285

== ENCOUNTER → 2020-02-07 08:33 | Outpatient (CLI) | payer MEDICARE, SELFPAY ==
[2020-02-07 09:13] LABS: Hematocrit 42.4 % (41-53); Hemoglobin 14.4 g/dL (13.5-17.5); Mean Corpuscular HGB Conc 34.1 % (30-36); Mean Corpuscular Hemoglobin 31.1 PG (26-34); Mean Corpuscular Volume 91.4 fL (80-100); Platelet Count 142 X10^3/uL (150-400); Red Blood Cell Count 4.64 X10^6/uL (4.5-5.9); Red Cell Distribution Width 13.3 % (11.6-14.8); White Blood Cell Count 5.7 X10^3/uL (4.5-11.0)
[2020-02-07 09:14] LABS: Creatinine Urine Random 270.4 mg/dL; Protein (Total) Urine Random 16 mg/dL (0-12); Protein Creatinine Ratio Urine 0.05 GRAM/24H
[2020-02-07 09:21] LABS: Blood Urea Nitrogen 21 mg/dL (9-20); Calcium 9.5 mg/dL (8.4-10.2); Carbon Dioxide 26 mmol/L (22-32); Chloride 106 mmol/L (98-107); Estimated Glomerular Filt Rate 52.9 mL/min (>60); Glucose 104 mg/dL (80-110); HEMOLYSIS < 15 (0-50); Potassium 4.6 mmol/L (3.4-5.1); Sodium 139 mmol/L (137-145)
[2020-02-08 07:58] LABS: Parathyroid Hormone Int 66 pg/mL (15-65)
== END ==
PROVIDERS: PCP Family Medicine; Referring Provider Student in an Organized Health Care Education/Training Program; Visit Provider Student in an Organized Health Care Education/Training Program
DX: N05.9 Unspecified nephritic syndrome with unspecified morphologic changes (principal); D70.9 Neutropenia, unspecified; D63.1 Anemia in chronic kidney disease; R80.9 Proteinuria, unspecified; N25.81 Secondary hyperparathyroidism of renal origin
CPT/HCPCS: 36415; 80048; 82570; 83970; 84156; 85027

== ENCOUNTER → 2020-06-19 07:48 | Outpatient (CLI) | payer MEDICARE, SELFPAY ==
[2020-06-20 07:41] LABS: PSA, Total 0.4 ng/mL (0.0-4.0)
== END ==
PROVIDERS: PCP Family Medicine; Referring Provider Urology; Visit Provider Urology
DX: N40.0 Benign prostatic hyperplasia without lower urinary tract symptoms (principal); N42.9 Disorder of prostate, unspecified
CPT/HCPCS: 36415; 84153; 84154

== ENCOUNTER → 2020-08-28 06:52 | Outpatient (CLI) | payer MEDICARE, SELFPAY ==
[2020-08-28 08:36] LABS: Hemoglobin 15.2 g/dL (13.5-17.5)
[2020-08-28 08:46] LABS: BUN Creatinine Ratio 22.3 (6-22); Blood Urea Nitrogen 27 mg/dL (9-20); Carbon Dioxide 24 mmol/L (22-32); Chloride 106 mmol/L (98-107); Estimated Glomerular Filt Rate 57.8 mL/min (>60); Glucose 101 mg/dL (80-110); HEMOLYSIS < 15 (0-50); Potassium 4.7 mmol/L (3.4-5.1); Sodium 141 mmol/L (137-145)
[2020-08-28 08:49] LABS: Creatinine Urine Random 134.3 mg/dL; Protein (Total) Urine Random 16 mg/dL (0-12); Protein Creatinine Ratio Urine 0.11 GRAM/24H
[2020-08-29 08:09] LABS: Parathyroid Hormone Int 60 pg/mL (15-65)
== END ==
PROVIDERS: PCP Family Medicine; Referring Provider Student in an Organized Health Care Education/Training Program; Visit Provider Student in an Organized Health Care Education/Training Program
DX: N05.9 Unspecified nephritic syndrome with unspecified morphologic changes (principal); D64.9 Anemia, unspecified; N25.81 Secondary hyperparathyroidism of renal origin; R80.9 Proteinuria, unspecified
CPT/HCPCS: 36415; 80048; 82570; 83970; 84156; 85014; 85018

== ENCOUNTER → 2021-04-30 07:47 | Outpatient (CLI) | payer MEDICARE, SELFPAY ==
[2021-04-30 08:56] LABS: Protein (Total) Urine Random 8 mg/dL (0-12); Protein Creatinine Ratio Urine 0.08 GRAM/24H
[2021-04-30 09:15] LABS: Hematocrit 43.7 % (41-53); Hemoglobin 14.5 g/dL (13.5-17.5)
[2021-04-30 09:27] LABS: BUN Creatinine Ratio 20.6 (6-22); Blood Urea Nitrogen 26 mg/dL (9-20); Calcium 9.7 mg/dL (8.4-10.2); Carbon Dioxide 25 mmol/L (22-32); Chloride 106 mmol/L (98-107); Estimated Glomerular Filt Rate 55.1 mL/min (>60); Glucose 91 mg/dL (80-110); HEMOLYSIS < 15 (0-50); Potassium 4.7 mmol/L (3.4-5.1); Sodium 141 mmol/L (137-145)
[2021-05-01 12:14] LABS: Parathyroid Hormone Int 63 pg/mL (15-65)
== END ==
PROVIDERS: PCP Family Medicine; Referring Provider Student in an Organized Health Care Education/Training Program; Visit Provider Student in an Organized Health Care Education/Training Program
DX: N05.9 Unspecified nephritic syndrome with unspecified morphologic changes (principal); R80.9 Proteinuria, unspecified; D64.9 Anemia, unspecified; N25.81 Secondary hyperparathyroidism of renal origin
CPT/HCPCS: 36415; 80048; 82570; 83970; 84156; 85014; 85018

== ENCOUNTER → 2021-06-22 15:47 | Outpatient (CLI) | payer MEDICARE, SELFPAY ==
--- NOTE | 2021-06-22 15:48 | DI.CT.S_ITS ---
PROCEDURE: CT CERVICAL SPINE WO CON INDICATIONS: Cervical stenosis TECHNIQUE: Noncontrast 3 mm thick sections acquired from the skull base to the T4 level. Sagittal and coronal reformats were then constructed. For radiation dose reduction, the following was used: automated exposure control, adjustment of mA and/or kV according to patient size. COMPARISON: [facility], MR, MR CERVICAL SPINE WO CON, 10/10/2019, 12:26. FINDINGS: Normal cervical spine vertebral body height and alignment. Heterogenous attenuation of the bone marrow with numerous ill-defined areas of lucency which may represent discrete pathologic lesions, although this could represent heterogenous demineralization or perhaps a metabolic osteodystrophy. Disc height loss from C2-C3 through C7-T1 with varying degrees of degenerative endplate change, facet hypertrophy, and uncovertebral hypertrophy. Regional soft tissues are normal. At C2-C3, moderate bilateral neural foraminal stenosis due to facet and uncovertebral hypertrophy. No spinal canal stenosis. At C3-C4, posterior disc osteophyte complex produces mild spinal canal stenosis. Severe right and moderate left neural foraminal stenosis due to facet and uncovertebral hypertrophy. At C4-C5, severe neural foraminal narrowing bilaterally. Mild spinal canal stenosis due to posterior disc-osteophyte complex. At C5-C6, moderate spinal canal stenosis due to posterior disc osteophyte complex with prominent osteophytic ridging and perhaps ossified disc material in the right paracentral zone. Severe right and mild left neural foraminal stenosis due to facet and uncovertebral hypertrophy. At C6-C7, moderate spinal canal stenosis due to posterior disc osteophyte complex. Facet and uncovertebral hypertrophy contribute to moderate bilateral neural foraminal stenosis. At C7-T1, mild spinal canal stenosis due to posterior disc osteophyte complex. Mild neural foraminal narrowing due to facet and uncovertebral hypertrophy. IMPRESSION: Numerous ill-defined areas of lucency in the vertebral column which may represent pathologic bone lesions versus metabolic osteodystrophy or heterogenous demineralization. Correlate with any clinical history of malignancy. MRI with and without IV contrast recommended should be considered. Multilevel multifactorial degenerative changes with multilevel moderate spinal canal stenosis and severe neural foraminal stenosis. Dictated by: Ac Boland M.D. on 06/22/2021 at 15:02 Approved by: Ac Boland M.D. on 06/22/2021 at 15:13
== END ==
PROVIDERS: PCP Family Medicine; Visit Provider Neurological Surgery
DX: M99.31 Osseous stenosis of neural canal of cervical region (principal); M47.812 Spondylosis without myelopathy or radiculopathy, cervical region; M48.02 Spinal stenosis, cervical region
CPT/HCPCS: 72125

== ENCOUNTER → 2021-10-15 08:48 | Outpatient (CLI) | payer MEDICARE, SELFPAY ==
--- NOTE | 2021-10-15 08:50 | DI.RAD.S_ITS ---
PROCEDURE: XR CERVICAL SPINE 4V OR 5V INDICATIONS: NECK PAIN TECHNIQUE: 5 views of the cervical spine acquired. COMPARISON: [facility], CT, CT CERVICAL SPINE WO CON, 06/22/2021, 15:58. [facility], CR, XR CERVICAL SPINE 2V OR 3V, 02/27/2019, 7:59. FINDINGS: Bones: No fractures or dislocations to the C7 level. There is ankylosis at C5-C6 there is moderate to severe degenerative change. There is multilevel bony neural foraminal narrowing bilaterally. There is uncovertebral joint hypertrophy. Oblique images demonstrate no bony foraminal stenoses. Soft tissues: No prevertebral soft tissue swelling. Left pacemaker. IMPRESSION: Severe multilevel bony foraminal narrowing and severe degenerative change in the cervical spine. Dictated by: José Loza M.D. on 10/15/2021 at 14:28 Approved by: José Loza M.D. on 10/15/2021 at 14:30
== END ==
PROVIDERS: PCP Family Medicine; Referring Provider Physical Medicine & Rehabilitation; Visit Provider Physical Medicine & Rehabilitation
DX: M47.812 Spondylosis without myelopathy or radiculopathy, cervical region (principal); M48.02 Spinal stenosis, cervical region
CPT/HCPCS: 72050

== ENCOUNTER → 2021-12-30 06:48 | Outpatient (CLI) | payer MEDICARE, SELFPAY ==
[2021-12-30 09:11] LABS: Hematocrit 40.6 % (41-53); Hemoglobin 13.8 g/dL (13.5-17.5)
[2021-12-30 09:14] LABS: BUN Creatinine Ratio 18.7 (6-22); Blood Urea Nitrogen 20 mg/dL (9-20); Calcium 8.9 mg/dL (8.4-10.2); Carbon Dioxide 28 mmol/L (22-32); Chloride 106 mmol/L (98-107); Estimated Glomerular Filt Rate > 60 mL/min (>60); Glucose 103 mg/dL (80-110); HEMOLYSIS < 15 (0-50); Potassium 4.3 mmol/L (3.4-5.1); Sodium 142 mmol/L (137-145)
[2021-12-30 10:16] LABS: Creatinine Urine Random 118.5 mg/dL; Protein (Total) Urine Random 61 mg/dL (0-12); Protein Creatinine Ratio Urine 0.51 GRAM/24H
[2021-12-31 08:32] LABS: Parathyroid Hormone Int 48 pg/mL (15-65)
== END ==
PROVIDERS: PCP Family Medicine; Referring Provider Student in an Organized Health Care Education/Training Program; Visit Provider Student in an Organized Health Care Education/Training Program
DX: N05.9 Unspecified nephritic syndrome with unspecified morphologic changes (principal); D64.9 Anemia, unspecified; N25.81 Secondary hyperparathyroidism of renal origin; R80.9 Proteinuria, unspecified
CPT/HCPCS: 36415; 80048; 82570; 83970; 84156; 85014; 85018

== ENCOUNTER → 2022-01-18 11:09 | Outpatient (CLI) | payer MEDICARE, SELFPAY ==
[2022-01-18 11:53] LABS: COVID19 -Nasal RAPID Negative (Negative)
== END ==
PROVIDERS: PCP Family Medicine; Visit Provider Physical Medicine & Rehabilitation
DX: Z20.822 Contact with and (suspected) exposure to COVID-19 (principal)
CPT/HCPCS: 87635; C9803

== ENCOUNTER 2022-01-20 08:34 | Outpatient (CLI) | payer MEDICARE, SELFPAY ==
[2022-01-20] VITALS (8 sets, daily range): BP systolic 138–208; BP diastolic 57–95; PULSE 60–70; RESP 12–20; TEMP 36.2; O2SAT 95–100
--- NOTE | 2022-01-20 08:37 | DI.RAD.S_ITS ---
PROCEDURE: PAIN C/T INTERLAMINAR INJECT INDICATIONS: SPINAL STENOSIS COMPARISON: None. FINDINGS: Fluoroscopic spot filming was performed to verify placement of spinal needles at the C6-C7 level(s), as labeled on the films. Appropriate location(s) of the needle tip(s) was confirmed by injection of iodinated contrast. IMPRESSION: Expected appearance of intraoperative procedural images demonstrating C6-C7 translaminar epidural steroid injection. Dictated by: Ac Boland M.D. on 01/20/2022 at 20:28 Approved by: Ac Boland M.D. on 01/20/2022 at 20:29
[2022-01-20] MEDS: MIDAZOLAM 2 MG/2 ML VIAL IV (09:52)
[2022-01-20] MEDS: BUPIVACAINE 0.25% (PF) VIAL 2 ML INJ (10:05)
[2022-01-20] MEDS: DEXAMETHASONE 10 MG/ML VIAL 30 MG INJ (10:05)
[2022-01-20] MEDS: IOPAMIDOL 15 ML VIAL 3 ML INJ (10:05)
--- NOTE | 2022-01-20 10:10 | P.PCN_ITS ---
Date/Time/Diagnoses Date of procedure: 01/20/22 Time of procedure: 10:10 Pre-procedure diagnosis: 1. CERVICAL STENOSIS, 2. CERVICAL HNP WITH UPPER EXTREMITY RADICULAR FEATURES Post-procedure diagnosis: same Procedure Notes Procedure: 1. FLUORSCOPICALLY GUIDED CONTRAST CONTROLLED INTERLAMINAR EPIDURAL STEROID INJECTION - C6/7 TL KHADRA Indications: Major is referred by Dr. Braswell for treatment of Cervical HNP with Upper Extremity Paresthesias. Physician: Paramjit Ni Total Fluoroscopy time (seconds): 25 Total sedation minutes: 13 Complications: none Procedure in detail & Post-procedure care: FINDINGS Cervical Stenosis due to disc deterioration and nerve root irritation and nerve root irritation DESCRIPTION OF PROCEDURE Fluoroscopically guided, contrast-controlled C6/7 translaminar epidural steroid injection with conscious sedation. Following review of allergy and review of potential side effects and complications, including, but not necessarily limited to, infection, allergic reaction, local tissue breakdown, temporary as well as permanent nerve injury, stroke, paralysis, and possible , the patient indicated that patient understood and agreed to proceed. An informed consent document was signed by the patient, witnessed by a nurse, and placed in the patient's chart. Additionally, other treatment options including modalities, medications, and physical therapy were reviewed with the patient. After review of previous anaesthesic history and IV conscious sedation the patient was deemed safe to proceed with today?s procedure with IV conscious sedation as ASA class II designation. Safety time-out was performed to confirm patient ID, procedure to be performed and site of procedure. IV sedation was accomplished with a combination of 2mg of Versed administered by the RN after DO order, titrated to patient comfort during the course of the procedure while the patient remained responsive to all verbal commands. In the prone position, following sterile prep and drape of the cervical region, the C6/7 translaminar space was identified fluoroscopically. The skin was anesthetized via a 25-gauge 1.5-inch needle with 1% lidocaine solution. At this point, a 25-gauge, 2.5-inch short bevel spinal needle was atraumatically introduced and advanced under fluoroscopic guidance into epidural space at the C6/7 translaminar space. Depth was confirmed on lateral view. Radiological data, including multiple fluoroscopic views of the cervical spine, reveal a spinal needle at the C6/7 translaminar space. Lateral views then show placement of the needle in the epidural space. Subsequent views show contrast material flowing superiorly and inferiorly in the epidural space. DSA fluoroscopy with live contrast injection, once again, confirmed no vascular or intrathecal uptake. At this point, using loss of resistance technique with saline and air, the epidural space was entered. Following negative aspiration, injection of approximately 1.5 cc of Isovue-200 with live fluoroscopy in the AP view confirmed epidural flow in the epidural space without vascular or intrathecal uptake observed. Subsequently, a test dose of 1 cc of 1% lidocaine solution was injected and patient was observed for two minutes without signs or symptoms of complications, including abdominal pain, shortness of breath, bilateral upper or lower extremity weakness, nausea and vomiting, prior to steroid injection. At this point, 3cc or 30mg of dexamethasone was then injected without incident. The patient tolerated the procedure well without signs or symptoms of compli cations prior to being transferred to the recovery area for further monitoring, The patient was then transferred to the recovery area where they were observed for an appropriate period of time after the injection. The patient reported a VAS score of 6 prior to the procedure and a post-procedure VAS of 0. POST OP INSTRUCTIONS The patient was provided a Pain Log to continue to record their response to the target-specific procedure prior to follow-up visit with the referring provider. Additionally, specific post-injection care instructions and a contact number to our office were provided if concerns arise regarding possible complications associated with the procedure are suspected.
== END 2022-01-20 10:28 | disposition home or self-care (01) ==
LOC: RAD 08:36
PROVIDERS: PCP Family Medicine; Referring Provider Physical Medicine & Rehabilitation; Visit Provider Physical Medicine & Rehabilitation
DX: M48.02 Spinal stenosis, cervical region (principal); M50.123 Cervical disc disorder at C6-C7 level with radiculopathy
CPT/HCPCS: 62321; 99152; J1100; J2250

== ENCOUNTER → 2022-02-21 07:12 | Outpatient (CLI) | payer MEDICARE, SELFPAY ==
[2022-02-21 09:28] LABS: Add Manual Diff / Slide Review NO; Basophils Absolute Auto 100 /uL (0-100); Basophils Percent Auto 0.9 % (0-2); Eosinophils Absolute Auto 100 /uL (0-450); Eosinophils Percent Auto 2.6 % (2-4); Hematocrit 40.5 % (41-53); Lymphocytes Absolute Auto 1500 /uL (1100-4500); Mean Corpuscular HGB Conc 34.6 % (30-36); Mean Corpuscular Hemoglobin 31.4 PG (26-34); Monocytes Absolute Auto 400 /uL (0-900); Monocytes Percent Auto 6.5 % (3-14); Neutrophils Absolute Auto 3800 /uL (1500-7000); Platelet Count 135 X10^3/uL (150-400); Red Blood Cell Count 4.45 X10^6/uL (4.5-5.9); Red Cell Distribution Width 13.7 % (11.6-14.8); White Blood Cell Count 5.8 X10^3/uL (4.5-11.0)
[2022-02-21 09:44] LABS: Cholesterol 123 mg/dL (140-199); HDL Cholesterol 44 mg/dL (40-60); LDL Cholesterol Calculated 57 mg/dL (<100); Triglycerides 108 mg/dL (35-150)
[2022-02-21 09:48] LABS: Alanine Aminotransferase 19 IU/L (<50); Albumin 4.1 g/dL (3.5-5.0); Albumin Globulin Ratio 1.4 (1.0-2.8); Alkaline Phosphatase 56 U/L (38-126); Aspartate Aminotransferase 22 IU/L (17-59); Bilirubin Total 0.6 mg/dL (0.2-1.3); Blood Urea Nitrogen 24 mg/dL (9-20); Calcium 9.3 mg/dL (8.4-10.2); Carbon Dioxide 25 mmol/L (22-32); Chloride 105 mmol/L (98-107); Estimated Glomerular Filt Rate > 60 mL/min (>60); Glucose 102 mg/dL (80-110); HEMOLYSIS < 15 (0-50); Potassium 4.5 mmol/L (3.4-5.1); Sodium 141 mmol/L (137-145); Total Protein 7.1 g/dL (6.3-8.2)
== END ==
PROVIDERS: PCP Family Medicine; Referring Provider Internal Medicine Cardiovascular Disease; Visit Provider Internal Medicine Cardiovascular Disease
DX: I10 Essential (primary) hypertension (principal); E78.5 Hyperlipidemia, unspecified; I48.0 Paroxysmal atrial fibrillation
CPT/HCPCS: 36415; 80053; 80061; 85025

== ENCOUNTER → 2022-07-01 09:32 | Outpatient (CLI) | payer MEDICARE, SELFPAY ==
--- NOTE | 2022-07-01 09:34 | DI.RAD.S_ITS ---
PROCEDURE: XR KNEE RT 3V INDICATIONS: Bilateral knee pain TECHNIQUE: 3 views of the knee were acquired. COMPARISON: None. FINDINGS: Bones: No fractures or dislocations. [id number] tricompartmental osteoarthritis is seen most notably in medial femoral tibial compartment. No suspicious bony lesions. Soft tissues: No joint effusion. No suspicious soft tissue calcifications. 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 No fracture or dislocation. No significant joint effusion. Dictated by: Francisco Ny M.D. on 07/01/2022 at 15:26 Approved by: Francisco Ny M.D. on 07/01/2022 at 15:27
--- NOTE | 2022-07-01 09:34 | DI.RAD.S_ITS ---
PROCEDURE: XR KNEE LT 3V INDICATIONS: Bilateral knee pain TECHNIQUE: 3 views of the knee were acquired. COMPARISON: None. FINDINGS: Bones: No fractures or dislocations. [id number] tricompartmental osteoarthritis is seen most notably in patellofemoral compartment. No patellar subluxation. No suspicious bony lesions. Soft tissues: Small to moderate suprapatellar joint effusion is seen.. No suspicious soft tissue calcifications. IMPRESSION: [id number] tricompartmental osteoarthritis most notably in patellofemoral compartment with small to moderate joint effusion. No fracture or dislocation. Dictated by: Franicsco Ny M.D. on 07/01/2022 at 15:27 Approved by: Francisco Ny M.D. on 07/01/2022 at 15:29
[2022-07-01 10:55] LABS: Add Manual Diff / Slide Review NO; Basophils Absolute Auto 0 /uL (0-100); Basophils Percent Auto 0.8 % (0-2); Eosinophils Absolute Auto 200 /uL (0-450); Eosinophils Percent Auto 3.1 % (2-4); Hematocrit 41.4 % (41-53); Hemoglobin 13.9 g/dL (13.5-17.5); Lymphocytes Absolute Auto 1300 /uL (1100-4500); Lymphocytes Percent Auto 21.9 % (25-40); Mean Corpuscular HGB Conc 33.6 % (30-36); Mean Corpuscular Hemoglobin 30.9 PG (26-34); Mean Corpuscular Volume 91.9 fL (80-100); Monocytes Absolute Auto 400 /uL (0-900); Monocytes Percent Auto 7.3 % (3-14); Neutrophils Absolute Auto 4100 /uL (1500-7000); Neutrophils Percent Auto 66.9 % (50-75); Platelet Count 122 X10^3/uL (150-400); Red Blood Cell Count 4.51 X10^6/uL (4.5-5.9); Red Cell Distribution Width 13.4 % (11.6-14.8); White Blood Cell Count 6.1 X10^3/uL (4.5-11.0)
[2022-07-01 11:10] LABS: Alanine Aminotransferase 208 IU/L (<50); Alkaline Phosphatase 67 U/L (38-126); Aspartate Aminotransferase 120 IU/L (17-59); BUN Creatinine Ratio 19.3 (6-22); Bilirubin Total 0.5 mg/dL (0.2-1.3); Blood Urea Nitrogen 22 mg/dL (9-20); Calcium 9.1 mg/dL (8.4-10.2); Carbon Dioxide 24 mmol/L (22-32); Chloride 107 mmol/L (98-107); Estimated Glomerular Filt Rate > 60 mL/min (>60); Glucose 104 mg/dL (80-110); HEMOLYSIS < 15 (0-50); Potassium 4.1 mmol/L (3.4-5.1); Sodium 141 mmol/L (137-145); Total Protein 7.3 g/dL (6.3-8.2)
[2022-07-01 11:37] LABS: Prostate Specific Antigen Scrn 0.735 ng/mL (0.1-4.0)
[2022-07-01 16:43] LABS: Albumin Globulin Ratio 1.2 (1.0-2.8); Globulin 3.3 g/dL (1.7-4.1)
== END ==
PROVIDERS: PCP Family Medicine; Referring Provider Family Medicine; Visit Provider Family Medicine
DX: M25.562 Pain in left knee (principal); E78.2 Mixed hyperlipidemia; M17.0 Bilateral primary osteoarthritis of knee; M25.561 Pain in right knee; Z12.5 Encounter for screening for malignant neoplasm of prostate; I48.0 Paroxysmal atrial fibrillation; N40.1 Benign prostatic hyperplasia with lower urinary tract symptoms
CPT/HCPCS: 36415; 73562; 80053; 85025; G0103

== ENCOUNTER → 2022-07-11 07:45 | Outpatient (CLI) | payer MEDICARE, SELFPAY ==
[2022-07-11 09:04] LABS: Hematocrit 42.6 % (41-53); Hemoglobin 14.4 g/dL (13.5-17.5)
[2022-07-11 09:18] LABS: Blood Urea Nitrogen 19 mg/dL (9-20); Carbon Dioxide 27 mmol/L (22-32); Chloride 103 mmol/L (98-107); Estimated Glomerular Filt Rate 57 mL/min (>60); Glucose 95 mg/dL (80-110); HEMOLYSIS < 15 (0-50); Potassium 4.2 mmol/L (3.4-5.1); Sodium 137 mmol/L (137-145)
[2022-07-11 11:24] LABS: Creatinine Urine Random 135.3 mg/dL; Protein (Total) Urine Random 64 mg/dL (0-12); Protein Creatinine Ratio Urine 0.47 GRAM/24H
[2022-07-14 07:53] LABS: Parathyroid Hormone Int 61 pg/mL (15-65)
== END ==
PROVIDERS: PCP Family Medicine; Referring Provider Student in an Organized Health Care Education/Training Program; Visit Provider Student in an Organized Health Care Education/Training Program
DX: N05.9 Unspecified nephritic syndrome with unspecified morphologic changes (principal); D64.9 Anemia, unspecified; N25.81 Secondary hyperparathyroidism of renal origin; R80.1 Persistent proteinuria, unspecified
CPT/HCPCS: 36415; 80048; 82570; 83970; 84156; 85014; 85018

== ENCOUNTER → 2022-07-21 07:34 | Outpatient (CLI) | payer MEDICARE, SELFPAY ==
[2022-07-21 08:28] LABS: Add Manual Diff / Slide Review NO; Basophils Absolute Auto 100 /uL (0-100); Basophils Percent Auto 1.1 % (0-2); Eosinophils Absolute Auto 200 /uL (0-450); Eosinophils Percent Auto 3.7 % (2-4); Hematocrit 43.1 % (41-53); Hemoglobin 14.5 g/dL (13.5-17.5); Lymphocytes Absolute Auto 1900 /uL (1100-4500); Mean Corpuscular HGB Conc 33.6 % (30-36); Mean Corpuscular Volume 92.2 fL (80-100); Monocytes Absolute Auto 600 /uL (0-900); Monocytes Percent Auto 8.9 % (3-14); Neutrophils Absolute Auto 3900 /uL (1500-7000); Neutrophils Percent Auto 58.3 % (50-75); Platelet Count 133 X10^3/uL (150-400); Red Blood Cell Count 4.68 X10^6/uL (4.5-5.9); Red Cell Distribution Width 13.8 % (11.6-14.8); White Blood Cell Count 6.7 X10^3/uL (4.5-11.0)
[2022-07-21 08:48] LABS: Alanine Aminotransferase 186 IU/L (<50); Albumin Globulin Ratio 1.3 (1.0-2.8); Alkaline Phosphatase 66 U/L (38-126); Aspartate Aminotransferase 127 IU/L (17-59); BUN Creatinine Ratio 20.6 (6-22); Bilirubin Total 0.7 mg/dL (0.2-1.3); Blood Urea Nitrogen 21 mg/dL (9-20); Calcium 9.3 mg/dL (8.4-10.2); Carbon Dioxide 25 mmol/L (22-32); Chloride 104 mmol/L (98-107); Estimated Glomerular Filt Rate > 60 mL/min (>60); Globulin 3.1 g/dL (1.7-4.1); Glucose 98 mg/dL (80-110); HEMOLYSIS 21 (0-50); Potassium 4.4 mmol/L (3.4-5.1); Sodium 137 mmol/L (137-145); Total Protein 7.1 g/dL (6.3-8.2)
== END ==
PROVIDERS: PCP Family Medicine; Referring Provider Family Medicine; Visit Provider Family Medicine
DX: E78.2 Mixed hyperlipidemia (principal); N18.9 Chronic kidney disease, unspecified; R79.89 Other specified abnormal findings of blood chemistry
CPT/HCPCS: 36415; 80053; 85025

== ENCOUNTER → 2022-08-05 10:54 | Outpatient (CLI) | payer MEDICARE, SELFPAY ==
[2022-08-08 06:36] LABS: HBsAg Screen Negative (Negative); Hepatitis A Antibody IgM Negative (Negative); Hepatitis B Core Antibody IgM Negative (Negative); Hepatitis C Antibody Non Reactive (Non Reactive)
[2022-08-08 17:11] LABS: Hep C Virus Ab w/Reflex Quant NEGATIVE s/c (NEGATIVE)
== END ==
PROVIDERS: PCP Family Medicine; Referring Provider Family Medicine; Visit Provider Family Medicine
DX: R79.89 Other specified abnormal findings of blood chemistry (principal); M25.561 Pain in right knee; M25.562 Pain in left knee
CPT/HCPCS: 36415; 80074; 86803

== ENCOUNTER → 2022-08-16 08:00 | Outpatient (CLI) | payer OTHER, SELFPAY ==
--- NOTE | 2022-08-16 | DI.US.S_ITS ---
PROCEDURE: US ABDOMEN LIMITED INDICATIONS: ELEVATED LIVER FUNCTION TESTS TECHNIQUE: Real-time scanning was performed of the abdominal and retroperitoneal organs, with image documentation. COMPARISON: None. FINDINGS: Liver: Shadowing calculi noted in the right hepatic lobe no biliary ductal dilatation Gallbladder: Cholelithiasis without gallbladder wall thickening or pericholecystic fluid Common Bile Duct: 5 mm. Pancreas: Unremarkable as visualized Right Kidney: Appropriate in size and echotexture. No evidence of hydronephrosis. No shadowing calculi. No solid or cystic mass lesion. small right renal cysts measure up to 1.6 cm IMPRESSION: 1. Cholelithiasis without acute cholecystitis 2. Hepatic calcifications may related to prior granulomatous disease. Consider follow-up CT Approved by: Jero Williamson M.D. on 08/16/2022 at 14:26
== END ==
PROVIDERS: PCP Family Medicine; Referring Provider Family Medicine; Visit Provider Family Medicine
DX: R79.89 Other specified abnormal findings of blood chemistry (principal); K80.20 Calculus of gallbladder without cholecystitis without obstruction; K80.50 Calculus of bile duct without cholangitis or cholecystitis without obstruction; N28.1 Cyst of kidney, acquired
CPT/HCPCS: 76705

== ENCOUNTER → 2022-08-19 18:21 | Outpatient (CLI) | payer OTHER, SELFPAY ==
--- NOTE | 2022-08-19 18:23 | DI.RAD.S_ITS ---
PROCEDURE: XR CHEST 2V INDICATIONS: cough and dyspnea TECHNIQUE: 2 views of the chest were acquired. COMPARISON: [facility], CR, XR CHEST 1V, 09/19/2018, 15:47. FINDINGS: Surgical changes and devices: Pacemaker Lungs and pleura: Lungs are clear. No pleural effusions or pneumothorax. Mediastinum: Mediastinal contours are normal. Heart size is normal. Bones and chest wall: No suspicious bony abnormalities. Soft tissues appear unremarkable. IMPRESSION: No evidence acute pulmonary process. Dictated by: Evaristo Srivastava M.D. on 08/19/2022 at 19:36 Approved by: Evaristo Srivastava M.D. on 08/19/2022 at 19:37
== END ==
PROVIDERS: PCP Family Medicine; Referring Provider Physician Assistant; Visit Provider Physician Assistant
DX: R05.9 Cough, unspecified (principal)
CPT/HCPCS: 71046

== ENCOUNTER → 2022-10-15 11:51 | Outpatient (CLI) | payer OTHER, SELFPAY ==
--- NOTE | 2022-10-15 11:53 | DI.RAD.S_ITS ---
PROCEDURE: XR LUMBAR SPINE MIN 4V INDICATIONS: BACK PAIN TECHNIQUE: 5 views of the lumbar spine were acquired, including bilateral oblique views COMPARISON: [facility], , L-SPINE 2-3 VIEWS, 05/06/2016, 10:18. FINDINGS: Bones: 5 nonrib-bearing vertebrae are present. There is mild dietary server teen curvature without rotational component of the lumbar spine. No vertebral body compression fractures. No suspicious bony lesions. Multilevel disc disease most prominent at L2-L3 and L3-L4 with large anterior osteophytes. Prominent facet arthrosis. Soft tissues: Overlying bowel gas pattern is normal. No suspicious soft tissue calcifications. Vascular stents are present. Abdominal aortic calcifications. Oblique images: No pars defects. IMPRESSION: Moderate disc disease of lumbar spine with prominent facet arthrosis. Dictated by: Daquan Boland M.D. on 10/15/2022 at 11:56 Approved by: Daquan Boland M.D. on 10/15/2022 at 12:03
== END ==
PROVIDERS: PCP Family Medicine; Referring Provider Physical Medicine & Rehabilitation; Visit Provider Physical Medicine & Rehabilitation
DX: M51.36 Other intervertebral disc degeneration, lumbar region (principal); M47.816 Spondylosis without myelopathy or radiculopathy, lumbar region; M54.9 Dorsalgia, unspecified
CPT/HCPCS: 72110

== ENCOUNTER → 2022-11-09 09:35 | Outpatient (CLI) | payer OTHER, SELFPAY ==
--- NOTE | 2022-11-09 09:38 | DI.CT.S_ITS ---
PROCEDURE: CT LUMBAR SPINE WO CON INDICATIONS: Lumbar stenosis with facet arthropathy TECHNIQUE: Noncontrast 3 mm thick sections acquired from the T12 level to the sacrum. Sagittal and coronal reformats were constructed. For radiation dose reduction, the following was used: automated exposure control. COMPARISON: Ultrasound 08/16/2022, ultrasound 02/24/2022 FINDINGS: Image quality: Excellent. Bones: Grade 1 retrolisthesis of L1 on L2 and L2 on L3. No acute vertebral body compression fractures. No suspicious lytic or blastic bony lesions. No pars defects. T12-L1: Moderate disc height loss. L1-L2: Disc osteophyte complex and facet hypertrophy causing [id number] spinal canal narrowing and moderate bilateral neural foraminal narrowing. L2-L3: Disc osteophyte complex and mild facet hypertrophy causes moderate spinal canal narrowing and moderate bilateral neural foraminal narrowing, right greater than left. L3-L4: Disc osteophyte complex and mild facet hypertrophy with superimposed asymmetric right foraminal disc bulge causes moderate spinal canal and moderate right neural foraminal narrowing and mild left neural foraminal narrowing. L4-L5: Disc osteophyte complex and moderate facet hypertrophy causes moderate spinal canal narrowing and mild bilateral neural foraminal narrowing. L5-S1: Moderate disc height loss without significant spinal canal narrowing. Mild bilateral neural foraminal narrowing. Soft tissues: No retroperitoneal masses or hematomas. There are a couple of saccular aneurysms of the infrarenal aorta, largest measuring 3.7 centimeter in maximum AP diameter. Hypoattenuating right renal lesion measuring 3 centimeter, not seen on comparison ultrasound IMPRESSION: Moderate, multilevel degenerative disc disease and facet arthrosis, resulting in multilevel [id number] spinal canal narrowing and neural foraminal narrowing. 3 centimeter hyperattenuating right renal lesion, not seen on comparison ultrasound. The attenuation is indeterminate, but could represent a hemorrhagic/proteinaceous cyst or less likely mass. Recommend follow-up with CT or MRI (renal mass protocol). No significant interval growth of the infrarenal aortic aneurysm, measuring 3.7 centimeters, stable since 02/24/2022. Continued follow-up every 2 years is recommended by ACR consensus criteria. Dictated by: Kj Nolan M.D. on 11/09/2022 at 14:42 Approved by: Kj Nolan M.D. on 11/09/2022 at 14:51
== END ==
PROVIDERS: PCP Family Medicine; Referring Provider Physical Medicine & Rehabilitation; Visit Provider Physical Medicine & Rehabilitation
DX: M47.816 Spondylosis without myelopathy or radiculopathy, lumbar region (principal); M48.061 Spinal stenosis, lumbar region without neurogenic claudication; M51.36 Other intervertebral disc degeneration, lumbar region
CPT/HCPCS: 72131

== ENCOUNTER → 2022-11-29 09:44 | Outpatient (CLI) | payer OTHER, SELFPAY ==
[2022-11-29 12:08] LABS: Alanine Aminotransferase 22 IU/L (<50); Albumin Globulin Ratio 1.3 (1.0-2.8); Alkaline Phosphatase 56 U/L (38-126); Aspartate Aminotransferase 26 IU/L (17-59); Bilirubin Total 0.3 mg/dL (0.2-1.3); Bilirubin Unconjugated 0.2 mg/dL (0.0-1.1); Globulin 3.1 g/dL (1.7-4.1); HEMOLYSIS < 15 (0-50); Total Protein 7.1 g/dL (6.3-8.2)
== END ==
PROVIDERS: PCP Family Medicine; Referring Provider Internal Medicine Gastroenterology; Visit Provider Internal Medicine Gastroenterology
DX: R74.8 Abnormal levels of other serum enzymes (principal)
CPT/HCPCS: 36415; 80076

== ENCOUNTER 2022-12-29 09:55 | Outpatient (CLI) | payer OTHER, SELFPAY ==
[2022-12-29] VITALS (8 sets, daily range): BP systolic 125–148; BP diastolic 57–70; PULSE 60–78; RESP 14–25; TEMP 36.1; O2SAT 96–100
--- NOTE | 2022-12-29 09:59 | DI.RAD.S_ITS ---
PROCEDURE: PAIN L/SI FACET INJ/BLK 1STL INDICATIONS: SPONDYLOSIS COMPARISON: [facility], CR, XR LUMBAR SPINE MIN 4V, 10/15/2022, 11:55. FINDINGS: Fluoroscopic spot filming was performed to verify placement of spinal needles on the left at the L3-L4 and L4-L5 levels, as labeled on the films. Appropriate location of the needle tips was confirmed by injection of iodinated contrast. Iliac stents are incidentally noted. IMPRESSION: Intraprocedural examination demonstrating appropriate positions of the needles. Dictated by: Telly Vick M.D. on 12/29/2022 at 13:39 Approved by: Telly Vick M.D. on 12/29/2022 at 13:40
[2022-12-29] MEDS: MIDAZOLAM 2 MG/2 ML VIAL IV (11:08)
[2022-12-29] MEDS: IOPAMIDOL 15 ML VIAL 3 ML INJ (11:13)
[2022-12-29] MEDS: BUPIVACAINE 0.5% (PF) 10 ML VIAL 2 ML INJ (11:14)
[2022-12-29] MEDS: BETAMETHASONE 30 MG/5 ML MDV 12 MG INJ (11:14)
--- NOTE | 2022-12-29 11:26 | P.PCN_ITS ---
Date/Time/Diagnoses Date of procedure: 12/29/22 Time of procedure: 11:26 Pre-procedure diagnosis: 1. FACET ARTHROPATHY, 2. AXIAL LBP, 3. MULTILEVEL DDD Post-procedure diagnosis: same Procedure Notes Procedure: 1. FLUOROSCOPICALLY GUIDED CONTRAST CONTROLLED FACET JOINT INJECTIONS LEFT L3/4, L4/5 Indications: Major is referred by Dr. Braswell for treatment of Axial LBP Physician: Paramjit Ni Total Fluoroscopy time (seconds): 12 Total sedation minutes: 17 Complications: none Procedure in detail & Post-procedure care: FINDINGS Multilevel Facet Arthropathy with Clinically significant axial LBP DESCRIPTION OF PROCEDURE Fluoroscopically guided, contrast-controlled left L3/4, L4/5 facet joint injections. Following review of allergy and review of potential side effects and complications, including, but not necessarily limited to, infection, allergic reaction, local tissue breakdown, stroke, temporary or permanent nerve injury, paralysis, and possible , the patient indicated that the patient understood and agreed to proceed. An informed consent document was signed by the patient, witnessed by a nurse, and placed in the patient's chart. Additionally, other tr eatment options including medications, modalities, and physical therapy were reviewed with the patient. After review of previous anaesthesic history and IV conscious sedation the patient was deemed safe to proceed with today?s procedure with IV conscious sedation as ASA class II designation. Safety time-out was performed to confirm patient ID, procedure to be performed and site of procedure. IV sedation was accomplished with a combination of 2mg of Versed administered by the RN after DO order, titrated to patient comfort during the course of the procedure while the patient remained responsive to all verbal commands. In the prone position, following sterile prep and drape of the lumbar region, the posterior aspect of the left L3/4, L4/5 facet joints were identified fluoroscopically. The skin was anesthetized via a 25-gauge 1.5-inch needle with 1% lidocaine solution into the corresponding facet joints. At this point, a 22- gauge 3.5-inch spinal needle was atraumatically introduced and advanced under fluoroscopic guidance into the corresponding facet joints. Following negative aspiration, injections of approximately 0.2cc of Isovue 200 confirmed interarticular placement without vascular uptake. Radiological data, including multiple fluoroscopic views of the lumbosacral spine, reveal a spinal needle at the left L3/4, L4/5 facet joints. Subsequent views show flow of contrast material both superiorly and inferiorly within the joint space without vascular or intrathecal uptake. At this point, a total of 0.5cc including a mixture of 0.25cc Marcaine and 0.25cc betamethasone was injected without complication into each of the corresponding facet joints. The patient tolerated the procedure well without signs or symptoms of complications prior to transfer to the recovery area for further monitoring. The patient was then transferred to the recovery area where they were observed for an appropriate period of time after the injection. The patient reported a VAS score of 7 prior to the procedure and a post-procedure VAS of 2. POSTOP INSTRUCTIONS The patient was provided a Pain Log to continue to record their response to the target-specific procedure prior to follow-up visit with their referring physician. Additionally, specific post-injection care instructions and a contact number to our office were provided if concerns arise regarding possible complications associated with the procedure are suspected.
== END 2022-12-29 11:40 | disposition home or self-care (01) ==
PROVIDERS: PCP Family Medicine; Referring Provider Physical Medicine & Rehabilitation; Visit Provider Physical Medicine & Rehabilitation
DX: M47.816 Spondylosis without myelopathy or radiculopathy, lumbar region (principal); M51.36 Other intervertebral disc degeneration, lumbar region
CPT/HCPCS: 64493; 64494; 99152; J0702; J2250

== ENCOUNTER → 2023-02-15 09:41 | Outpatient (CLI) | payer OTHER, SELFPAY ==
[2023-02-15 11:10] LABS: Hematocrit 40.9 % (41-53); Hemoglobin 13.9 g/dL (13.5-17.5)
[2023-02-15 11:27] LABS: BUN Creatinine Ratio 20.5 (6-22); Blood Urea Nitrogen 25 mg/dL (9-20); Calcium 9.1 mg/dL (8.4-10.2); Carbon Dioxide 26 mmol/L (22-32); Chloride 105 mmol/L (98-107); Estimated Glomerular Filt Rate 59 mL/min (>60); Glucose 109 mg/dL (80-110); HEMOLYSIS < 15 (0-50); Potassium 4.2 mmol/L (3.4-5.1); Sodium 138 mmol/L (137-145)
[2023-02-15 11:44] LABS: Creatinine Urine Random 150.7 mg/dL; Protein (Total) Urine Random 6 mg/dL (0-12); Protein Creatinine Ratio Urine 0.03 GRAM/24H
[2023-02-16 07:38] LABS: Parathyroid Hormone Int 55 pg/mL (15-65)
== END ==
PROVIDERS: PCP Family Medicine; Referring Provider Student in an Organized Health Care Education/Training Program; Visit Provider Student in an Organized Health Care Education/Training Program
DX: N05.9 Unspecified nephritic syndrome with unspecified morphologic changes (principal); D64.9 Anemia, unspecified; N25.81 Secondary hyperparathyroidism of renal origin; R80.9 Proteinuria, unspecified
CPT/HCPCS: 36415; 80048; 82570; 83970; 84156; 85014; 85018

== ENCOUNTER 2023-04-04 08:11 | Outpatient (CLI) | payer OTHER, SELFPAY ==
[2023-04-04] VITALS (9 sets, daily range): BP systolic 160–193; BP diastolic 69–91; PULSE 60–73; RESP 14–21; TEMP 36.8; O2SAT 99–100
--- NOTE | 2023-04-04 08:13 | DI.RAD.S_ITS ---
PROCEDURE: PAIN L/S FACET INJ/BLK 1ST NUHA INDICATIONS: SPONDYLOSIS COMPARISON: None. FINDINGS: Fluoroscopic spot filming was performed to verify placement of spinal needles at the right L3, L3-4 and L5 level(s), as labeled on the films. Appropriate location(s) of the needle tip(s) was confirmed by injection of iodinated contrast. IMPRESSION: Fluoro guidance was provided intraoperatively for bilateral L3 through L5 medial branch block performed by the ordering physician. Dictated by: Francisco Ny M.D. on 04/04/2023 at 12:36 Approved by: Francisco Ny M.D. on 04/04/2023 at 12:36
[2023-04-04] MEDS: MIDAZOLAM 2 MG/2 ML VIAL IV (09:27)
[2023-04-04] MEDS: LIDOCAINE 1% 20 ML 5 ML INJ (09:30)
[2023-04-04] MEDS: iopamidoL 15 ML VIAL 3 ML INJ (09:30)
[2023-04-04] MEDS: BUPIVACAINE 0.5% (PF) 10 ML VIAL 5 ML INJ (09:30)
--- NOTE | 2023-04-04 09:44 | PM.PROC.IR.1 ---
Date/Time/Diagnoses Date of procedure: 04/04/23 Time of procedure: 09:44 Pre-procedure diagnosis: FACET ARTHROPATHY Post-procedure diagnosis: same Procedure Notes Procedure: 1. BILATERAL L3, L4 AND L5 DIAGNOSTIC MB BLOCKS Indications: Major is referred by Dr. Braswell for treatment of Bilateral Axial LBP. Physician: Paramjit Ni Total Fluoroscopy time (seconds): 13 Total sedation minutes: 11 Complications: none Procedure in detail & Post-procedure care: DESCRIPTION OF PROCEDURE Fluoroscopically guided, contrast-controlled bilateral L3, L4 AND L5 medial branch blocks with 0.5cc of 0.5% Marcaine. Following review of allergy and review of potential side effects and complications, including, but not necessarily limited to, infection, allergic reaction, local tissue breakdown, nerve injury, paralysis, stroke and possible , the patient indicated that the patient understood and agreed to proceed. An informed consent document was signed by the patient, witnessed by a nurse, and placed in the patient's chart. After review of previous anaesthesic history and IV conscious sedation the patient was deemed safe to proceed with today's procedure with IV conscious sedation as ASA class II designation. Safety time-out was performed to confirm patient ID, procedure to be performed and site of procedure. IV sedation was accomplished with a combination of 2mg of Versed was administered by the RN after DO order, titrated to patient comfort during the course of the procedure while the patient remained responsive to all verbal commands In the prone position, following sterile prep and drape of the lumbar region, the right L3, L4 and L5 anatomical location of the medial branch of the dorsal ramus was identified fluoroscopically. Subsequently an anesthetic skin wheal using 1% lidocaine solution was initiated at each of the anatomical spots. Subsequently then a 22-gauge 3.5-inch spinal needle was atraumatically introduced and advanced under fluoroscopic guidance at each of the corresponding sites at the right L3, L4 and L5 MB. After negative aspiration, 0.2cc of Isovue 200 was injected, confirming placement without vascular or intrathecal uptake. Subsequently then 0.5cc of 0.5% Marcaine solution was injected at each of the corresponding sites at the right L3, L4 and L5 medial branch locations. The identical procedure was replicated on the left. The patient tolerated the procedure well without signs or symptoms of complications. The patient tolerated the procedure well without signs or symptoms of complications prior to transfer to the recovery area continued monitoring without incident. Post-procedure, the patient was monitored initiating provocative activities to measure the amount of relief from block of the facetogenic pain. The patient reported a VAS of 7 prior to the procedure and a post-procedure VAS of 1. It has been a pleasure to assist in the diagnostic and therapeutic care of your patient. POST OP INSTRUCTIONS The patient was provided with a Pain Log to complete over the next several hours and subsequent days prior to the patient's follow up with the ordering physician. If the patient has service attendant relief to the solution applied, then they may be a candidate for medial branch rhizotomy. The patient is aware, was provided, once again, with a Pain Log and will follow up with the referring physician for review and clinical correlation
== END 2023-04-04 10:02 | disposition home or self-care (01) ==
LOC: RAD 08:12
PROVIDERS: PCP Family Medicine; Referring Provider Physical Medicine & Rehabilitation; Visit Provider Physical Medicine & Rehabilitation
DX: M47.816 Spondylosis without myelopathy or radiculopathy, lumbar region (principal)
CPT/HCPCS: 64493; 64494; 99152; J2250

== ENCOUNTER → 2023-06-13 07:08 | Outpatient (CLI) | payer OTHER, SELFPAY ==
[2023-06-13 08:18] LABS: Alanine Aminotransferase 104 IU/L (<50); Albumin 3.9 g/dL (3.5-5.0); Albumin Globulin Ratio 1.2 (1.0-2.8); Alkaline Phosphatase 62 U/L (38-126); BUN Creatinine Ratio 20.5 (6-22); Bilirubin Total 0.6 mg/dL (0.2-1.3); Blood Urea Nitrogen 26 mg/dL (9-20); Calcium 9.7 mg/dL (8.4-10.2); Carbon Dioxide 27 mmol/L (22-32); Chloride 104 mmol/L (98-107); Cholesterol 123 mg/dL (140-199); Estimated Glomerular Filt Rate 56 mL/min (>60); Globulin 3.3 g/dL (1.7-4.1); Glucose 97 mg/dL (80-110); HDL Cholesterol 46 mg/dL (40-60); LDL Cholesterol Calculated 63 mg/dL (<100); Potassium 4.8 mmol/L (3.4-5.1); Sodium 137 mmol/L (137-145); Total Protein 7.2 g/dL (6.3-8.2); Triglycerides 69 mg/dL (35-150)
[2023-06-16 14:44] LABS: HEMOLYSIS 18 (0-50)
[2023-06-16 14:45] LABS: Aspartate Aminotransferase 89 IU/L (17-59)
== END ==
PROVIDERS: PCP Family Medicine; Referring Provider Internal Medicine Cardiovascular Disease; Visit Provider Internal Medicine Cardiovascular Disease
DX: I10 Essential (primary) hypertension (principal); E78.5 Hyperlipidemia, unspecified
CPT/HCPCS: 36415; 80053; 80061

== ENCOUNTER 2023-08-17 10:50 | Outpatient (CLI) | payer OTHER, SELFPAY ==
[2023-08-17] VITALS (8 sets, daily range): BP systolic 134–191; BP diastolic 65–81; PULSE 65–86; RESP 15–21; TEMP 36.5; O2SAT 96–100
--- NOTE | 2023-08-17 11:15 | DI.RAD.S_ITS ---
PROCEDURE: PAIN L/S FACET INJ/BLK 1ST NUHA INDICATIONS: FACET ARTHROPATHY COMPARISON: [facility], XA, PAIN L/S FACET INJ/BLK 1ST NHUA, 04/04/2023, 9:29. FINDINGS: Fluoroscopic spot filming was performed to verify placement of spinal needles overlying the L3, L4 and L5 level(s), as labeled on the films. Appropriate location(s) of the needle tip(s) was confirmed by injection of iodinated contrast. IMPRESSION: Needle and contrast localization overlying L3, L4 on L5. Dictated by: Jacqueline Armas M.D. on 08/17/2023 at 19:45 Approved by: Jacqueline Armas M.D. on 08/17/2023 at 19:45
[2023-08-17] MEDS: MIDAZOLAM 2 MG/2 ML VIAL IV (11:53)
[2023-08-17] MEDS: LIDOCAINE 1% 20 ML 5 ML INJ (11:58)
[2023-08-17] MEDS: iopamidoL 15 ML VIAL 3 ML INJ (11:59)
[2023-08-17] MEDS: LIDOCAINE 2% INJ SDV 5ML 10 ML INJ (12:00)
--- NOTE | 2023-08-17 12:17 | P.PCN_ITS ---
Date/Time/Diagnoses Date of procedure: 08/17/23 Time of procedure: 12:17 Pre-procedure diagnosis: 1. FACET ARTHROPATHY Post-procedure diagnosis: same Procedure Notes Procedure: 1. BILATERAL L3, L4 AND L5 DIAGNOSTIC MB BLOCKS Indications: Major is referred by Dr. Braswell for treatment of Bilateral Axial LBP. Physician: Paramjit Ni Total Fluoroscopy time (seconds): 13 Total sedation minutes: 17 Complications: none Procedure in detail & Post-procedure care: DESCRIPTION OF PROCEDURE Fluoroscopically guided, contrast-controlled bilateral L3, L4 AND L5 medial branch blocks with 0.5cc of 2% Lidocaine. Following review of allergy and review of potential side effects and complications, including, but not necessarily limited to, infection, allergic reaction, local tissue breakdown, nerve injury, paralysis, stroke and possible , the patient indicated that the patient understood and agreed to proceed. An informed consent document was signed by the patient, witnessed by a nurse, and placed in the patient's chart. After review of previous anaesthesic history and IV conscious sedation the patient was deemed safe to proceed with today's procedure with IV conscious sedation as ASA class II designation. Safety time-out was performed to confirm patient ID, procedure to be performed and site of procedure. IV sedation was accomplished with a combination of 2mg of Versed was administered by the RN after DO order, titrated to patient comfort during the course of the procedure while the patient remained responsive to all verbal commands In the prone position, following sterile prep and drape of the lumbar region, the right L3, L4 AND L5 anatomical location of the medial branch of the dorsal ramus was identified fluoroscopically. Subsequently an anesthetic skin wheal using 1% lidocaine solution was initiated at each of the anatomical spots. Subsequently then a 22-gauge 3.5-inch spinal needle was atraumatically introduced and advanced under fluoroscopic guidance at each of the corresponding sites at the right L3, L4 and L5 MB. After negative aspiration, 0.2cc of Isovue 200 was injected, confirming placement without vascular or intrathecal uptake. Subsequently then 0.5cc of 2% Lidocaine solution was injected at each of the corresponding sites at the right L3, L4 and L5 medial branch locations. The identical procedure was replicated on the left. The patient tolerated the proc edure well without signs or symptoms of complications. The patient tolerated the procedure well without signs or symptoms of complications prior to transfer to the recovery area continued monitoring without incident. Post-procedure, the patient was monitored initiating provocative activities to measure the amount of relief from block of the facetogenic pain. The patient reported a VAS of 7 prior to the procedure and a post-procedure VAS of 1. It has been a pleasure to assist in the diagnostic and therapeutic care of your patient. POST OP INSTRUCTIONS The patient was provided with a Pain Log to complete over the next several hours and subsequent days prior to the patient's follow up with the ordering physician. If the patient has chamber of commerce division manager relief to the solution applied, then they may be a candidate for medial branch rhizotomy. The patient is aware, was provided, once again, with a Pain Log and will follow up with the referring physician for review and clinical correlation
== END 2023-08-17 12:30 | disposition home or self-care (01) ==
PROVIDERS: PCP Family Medicine; Referring Provider Physical Medicine & Rehabilitation; Visit Provider Physical Medicine & Rehabilitation
DX: M47.816 Spondylosis without myelopathy or radiculopathy, lumbar region (principal)
CPT/HCPCS: 64493; 64494; 99152; J2250

== ENCOUNTER → 2023-10-04 06:53 | Outpatient (CLI) | payer OTHER, SELFPAY ==
[2023-10-04 07:56] LABS: Hematocrit 43.2 % (41-53); Hemoglobin 14.5 g/dL (13.5-17.5)
[2023-10-04 08:35] LABS: BUN Creatinine Ratio 20.3 (6-22); Blood Urea Nitrogen 30 mg/dL (9-20); Calcium 9.4 mg/dL (8.4-10.2); Carbon Dioxide 23 mmol/L (22-32); Chloride 110 mmol/L (98-107); Estimated Glomerular Filt Rate 47 mL/min (>60); Glucose 94 mg/dL (80-110); HEMOLYSIS < 15 (0-50); Potassium 4.3 mmol/L (3.4-5.1); Sodium 140 mmol/L (137-145)
[2023-10-04 10:49] LABS: Creatinine Urine Random 120.2 mg/dL; Protein (Total) Urine Random 12 mg/dL (0-12); Protein Creatinine Ratio Urine 0.09 GRAM/24H
[2023-10-05 07:20] LABS: Parathyroid Hormone Int 56 pg/mL (15-65)
== END ==
LOC: LAB 06:55
PROVIDERS: PCP Family Medicine; Referring Provider Student in an Organized Health Care Education/Training Program; Visit Provider Student in an Organized Health Care Education/Training Program
DX: N05.9 Unspecified nephritic syndrome with unspecified morphologic changes (principal); D70.9 Neutropenia, unspecified; D63.1 Anemia in chronic kidney disease; N25.81 Secondary hyperparathyroidism of renal origin; R80.9 Proteinuria, unspecified
CPT/HCPCS: 36415; 80048; 82570; 83970; 84156; 85014; 85018

== ENCOUNTER → 2023-11-16 07:08 | Outpatient (CLI) | payer OTHER, SELFPAY ==
[2023-11-16 07:56] LABS: Add Manual Diff / Slide Review NO; Basophils Absolute Auto 100 /uL (0-100); Eosinophils Absolute Auto 200 /uL (0-450); Eosinophils Percent Auto 2.6 % (2-4); Hematocrit 43.3 % (41-53); Hemoglobin 14.6 g/dL (13.5-17.5); Lymphocytes Absolute Auto 1600 /uL (1100-4500); Lymphocytes Percent Auto 26.3 % (25-40); Mean Corpuscular HGB Conc 33.7 % (30-36); Mean Corpuscular Hemoglobin 30.7 PG (26-34); Mean Corpuscular Volume 91.2 fL (80-100); Monocytes Absolute Auto 500 /uL (0-900); Monocytes Percent Auto 7.4 % (3-14); Neutrophils Absolute Auto 3800 /uL (1500-7000); Neutrophils Percent Auto 62.7 % (50-75); Platelet Count 127 X10^3/uL (150-400); Red Blood Cell Count 4.75 X10^6/uL (4.5-5.9); Red Cell Distribution Width 13.7 % (11.6-14.8); White Blood Cell Count 6.1 X10^3/uL (4.5-11.0)
[2023-11-16 08:29] LABS: Alanine Aminotransferase 23 IU/L (<50); Albumin 4.3 g/dL (3.5-5.0); Albumin Globulin Ratio 1.5 (1.0-2.8); Alkaline Phosphatase 54 U/L (38-126); Aspartate Aminotransferase 31 IU/L (17-59); BUN Creatinine Ratio 19.6 (6-22); Bilirubin Total 0.7 mg/dL (0.2-1.3); Blood Urea Nitrogen 30 mg/dL (9-20); Calcium 9.3 mg/dL (8.4-10.2); Carbon Dioxide 24 mmol/L (22-32); Chloride 109 mmol/L (98-107); Cholesterol 141 mg/dL (140-199); Estimated Glomerular Filt Rate 45 mL/min (>60); Globulin 2.9 g/dL (1.7-4.1); Glucose 101 mg/dL (80-110); HDL Cholesterol 56 mg/dL (40-60); HEMOLYSIS < 15 (0-50); LDL Cholesterol Calculated 68 mg/dL (<100); Potassium 4.8 mmol/L (3.4-5.1); Sodium 138 mmol/L (137-145); Total Protein 7.2 g/dL (6.3-8.2); Triglycerides 84 mg/dL (35-150)
[2023-11-16 08:57] LABS: Prostate Specific Antigen Scrn 1.05 ng/mL (0.1-4.0)
== END ==
PROVIDERS: PCP Family Medicine; Referring Provider Internal Medicine Cardiovascular Disease; Visit Provider Internal Medicine Cardiovascular Disease
DX: E78.5 Hyperlipidemia, unspecified (principal); Z12.5 Encounter for screening for malignant neoplasm of prostate; N40.1 Benign prostatic hyperplasia with lower urinary tract symptoms; I10 Essential (primary) hypertension; E78.2 Mixed hyperlipidemia; Z00.00 Encounter for general adult medical examination without abnormal findings
CPT/HCPCS: 36415; 80053; 80061; 85025; G0103

== ENCOUNTER → 2024-05-15 06:57 | Outpatient (CLI) | payer OTHER, SELFPAY ==
--- NOTE | 2024-05-15 06:58 | DI.US.S_ITS ---
PROCEDURE: US RENAL COMPLETE INDICATIONS: DECREASING KIDNEY FUNCTION. H/O BENIGN PROSTATE HYPERPLASIA. TECHNIQUE: Real-time scanning was performed of the kidneys and bladder, with image documentation. COMPARISON: [facility], , US RENAL COMPLETE, 06/04/2019, 8:01. FINDINGS: Kidneys: Kidneys are normal in size. Right kidney measures 11.5 cm long; left kidney measures 12.6 cm long. Right renal cortical thickness is 1.3 cm; left renal cortical thickness is 1.8 cm. Renal cortical echotexture is normal. No hydronephrosis. 5 mm nonobstructing left renal calculus at the inferior pole. No suspicious solid mass lesions. Bilateral benign renal cysts. Bladder: Pre-void bladder volume is 556 mL. Post-void residual is 17 mL. Pre-void images demonstrate no intraluminal masses or stones. On pre-void images, bilateral ureteral jets are noted with color Doppler interrogation. (Of note, ureteral jets may not be detectable in up to 25% of cases due to insufficient differences in specific gravity between ureteral and bladder urine). Miscellaneous: Prostate measures 6.1 x 5.6 x 5.6 cm. No free pelvic fluid. Non mobile gallstones are incidentally noted without secondary signs of acute cholecystitis. IMPRESSION: 1. Nonobstructing 5 mm left renal calculus. No hydronephrosis. 2. Bilateral benign renal cysts. 3. Prostatomegaly. 4. Cholelithiasis. Approved by: Eliecer Perry M.D. on 05/16/2024 at 12:16
== END ==
PROVIDERS: PCP Family Medicine; Referring Provider Urology; Visit Provider Urology
DX: N40.1 Benign prostatic hyperplasia with lower urinary tract symptoms (principal); N20.0 Calculus of kidney; N28.1 Cyst of kidney, acquired; K80.20 Calculus of gallbladder without cholecystitis without obstruction
CPT/HCPCS: 76770

== ENCOUNTER → 2024-05-20 07:06 | Outpatient (CLI) | payer OTHER, SELFPAY ==
[2024-05-20 08:52] LABS: Cholesterol 209 mg/dL (140-199); HDL Cholesterol 55 mg/dL (40-60); LDL Cholesterol Calculated 137 mg/dL (<100); Triglycerides 83 mg/dL (35-150)
[2024-05-20 09:01] LABS: NT-proBNP (BNP-Adult 18+) 157 pg/mL (<450)
== END ==
PROVIDERS: PCP Family Medicine; Referring Provider Family Medicine; Visit Provider Family Medicine
DX: J44.1 Chronic obstructive pulmonary disease with (acute) exacerbation (principal); E78.2 Mixed hyperlipidemia; I65.29 Occlusion and stenosis of unspecified carotid artery; I50.9 Heart failure, unspecified; I11.0 Hypertensive heart disease with heart failure
CPT/HCPCS: 36415; 80061; 83880

== ENCOUNTER → 2024-06-07 07:06 | Outpatient (CLI) | payer OTHER, SELFPAY ==
--- NOTE | 2024-06-07 07:09 | DI.US.S_ITS ---
PROCEDURE: US CAROTID DOPPLER BI INDICATIONS: eval TECHNIQUE: Color and pulse Doppler interrogation was performed of both carotid systems, with image documentation and velocity measurements. COMPARISON: , , US CAROTID DOPPLER BI, 09/26/2018, 9:49. FINDINGS: Stenosis calculations are based on SRU (Society of Radiologists in Ultrasound) criteria. Right side: Brachial blood pressure: 114/58 mm Hg. Common carotid artery peak systolic velocity: 120 cm/sec. Internal carotid artery peak systolic velocity: 103 cm/sec. Internal carotid artery end diastolic velocity: 13 cm/sec. External carotid artery peak systolic velocity: 124 cm/sec. ICA/CCA peak systolic ratio: 0.9 . Benson scale imaging description: Common carotid artery demonstrates smooth luminal contour with moderate intimal medial thickening diffusely. No significant calcified or noncalcified stenosis. Mid ICA also demonstrates slightly high resistance waveforms. There is maintenance of forward diastolic flow. Percent internal carotid artery stenosis: Less than 50% . Vertebral artery: Flow is not detected. Left side: Brachial blood pressure: 138/63 mm Hg. Common carotid artery peak systolic velocity: 82 cm/sec. Internal carotid artery peak systolic velocity: 165 cm/sec. Internal carotid artery end diastolic velocity: 27 cm/sec. External carotid artery peak systolic velocity: 264 cm/sec. ICA/CCA peak systolic ratio: 2.0 . Benson scale imaging description: Heavy sessile calcified plaque throughout the common carotid artery. Internal carotid artery waveforms demonstrate high resistance morphology with minimal, but maintained forward diastolic flow. Percent internal carotid artery stenosis: Between 50 and 69% . Vertebral artery: Flow direction is antegrade. IMPRESSION: 1. In the right carotid artery, there is less than 50% stenosis based on peak systolic velocity criteria. 2. In the left carotid artery, there is between 50 and 69 % stenosis based on peak systolic velocity criteria. 3. Right vertebral artery flow is not detected. Left vertebral artery flows antegrade. 4. High-grade left external carotid artery stenosis. Dictated by: Rubi Chu M.D. on 06/07/2024 at 13:38 Approved by: Rubi Chu M.D. on 06/07/2024 at 13:45
== END ==
PROVIDERS: PCP Family Medicine; Referring Provider Family Medicine; Visit Provider Family Medicine
DX: I50.9 Heart failure, unspecified (principal); R06.02 Shortness of breath; I65.23 Occlusion and stenosis of bilateral carotid arteries
CPT/HCPCS: 93880

== ENCOUNTER → 2024-07-31 11:34 | Outpatient (CLI) | payer MEDICARE, SELFPAY ==
--- NOTE | 2024-07-31 11:36 | DI.RAD.S_ITS ---
PROCEDURE: XR CHEST 2V INDICATIONS: COPD exacerbation, eval for PNA 4wk cough TECHNIQUE: 2 views of the chest were acquired. COMPARISON: [facility], CR, XR CHEST 2V, 08/19/2022, 18:33. FINDINGS AND IMPRESSION: There is mild focal consolidation in the lingula. No pleural effusions. Given patient's presumed risk factors, consider surveillance imaging with radiograph or CT. Normal heart size. Left chest wall pulse generator with dual-chamber electrode leads. Degenerative osseous changes. Dictated by: Eros Cota M.D. on 07/31/2024 at 12:21 Approved by: Eros Cota M.D. on 07/31/2024 at 12:23
== END ==
PROVIDERS: PCP Family Medicine; Referring Provider Student in an Organized Health Care Education/Training Program; Visit Provider Student in an Organized Health Care Education/Training Program
DX: R05.8 Other specified cough (principal)
CPT/HCPCS: 71046

== ENCOUNTER → 2024-12-25 06:52 | Outpatient (CLI) | payer MEDICARE, SELFPAY ==
[2024-12-25 08:11] LABS: Add Manual Diff / Slide Review NO; Hematocrit 41.7 % (41-53); Hemoglobin 14.2 g/dL (13.5-17.5); Lymphocytes Absolute Auto 1400 /uL (1100-4500); Mean Corpuscular HGB Conc 34.0 % (30-36); Mean Corpuscular Hemoglobin 31.3 PG (26-34); Mean Corpuscular Volume 91.8 fL (80-100); Platelet Count 111 X10^3/uL (150-400)
[2024-12-25 08:28] LABS: Alanine Aminotransferase 24 IU/L (<50); Albumin 4.0 g/dL (3.5-5.0); Albumin Globulin Ratio 1.4 (1.0-2.8); Alkaline Phosphatase 54 U/L (38-126); Blood Urea Nitrogen 27 mg/dL (9-20); Calcium 9.4 mg/dL (8.4-10.2); Carbon Dioxide 23 mmol/L (22-32); Chloride 108 mmol/L (98-107); Cholesterol 136 mg/dL (140-199); Estimated Glomerular Filt Rate 55 mL/min (>60); Globulin 2.8 g/dL (1.7-4.1); Glucose 94 mg/dL (70-99); HDL Cholesterol 50 mg/dL (40-60); HEMOLYSIS < 15 (0-50); Potassium 4.5 mmol/L (3.4-5.1); Sodium 139 mmol/L (137-145); Total Protein 6.8 g/dL (6.3-8.2); Triglycerides 74 mg/dL (35-150)
[2024-12-25 08:56] LABS: TSH w/ Reflex to FT4 4.46 uIU/mL (0.47-4.68)
== END ==
PROVIDERS: PCP Family Medicine; Referring Provider Family Medicine; Visit Provider Family Medicine
DX: Z12.5 Encounter for screening for malignant neoplasm of prostate (principal); R79.89 Other specified abnormal findings of blood chemistry; I12.9 Hypertensive chronic kidney disease with stage 1 through stage 4 chronic kidney disease, or unspecified chronic kidney disease; N18.2 Chronic kidney disease, stage 2 (mild); E78.2 Mixed hyperlipidemia; I48.0 Paroxysmal atrial fibrillation
CPT/HCPCS: 36415; 80053; 80061; 84443; 85025; G0103

== ENCOUNTER 2025-05-01 07:34 | Outpatient (CLI) | payer MEDICARE, SELFPAY ==
[2025-05-01] VITALS (14 sets, daily range): BP systolic 122–171; BP diastolic 57–81; PULSE 60–65; RESP 15–20; TEMP 36.2; O2SAT 95–100
[2025-05-01] MEDS: MIDAZOLAM 2 MG/2 ML VIAL IV (08:34)
[2025-05-01] MEDS: LIDOCAINE 1% 20 ML 5 ML INJ (08:51)
[2025-05-01] MEDS: MIDAZOLAM 2 MG/2 ML VIAL 1 MG IV (08:59)
--- NOTE | 2025-05-01 09:20 | P.PCN_ITS ---
Date/Time/Diagnoses Date of procedure: 05/01/25 Time of procedure: 09:20 Pre-procedure diagnosis: 1. RECALCITRANT FACET ARTHROPATHY Post-procedure diagnosis: same Procedure Notes Procedure: 1. BILATERAL L3, L4 AND L5 MEDIAL BRANCH RADIOFREQUENCY NEUROTOMY Indications: Major is referred by Dr. Braswell for treatment of facet arthropathy. Physician: Paramjit Ni Total Fluoroscopy time (seconds): 19 Total sedation minutes: 39 Complications: none Procedure in detail & Post-procedure care: DESCRIPTION OF PROCEDURE Bilateral L3, L4 and L5 medial branch radiofrequency neurotomy The patient is well known to this clinic having undergone previous facet injections with good but temporary relief. The patient has experienced appropriate, concordant relief with previous facet and median branch blocks but the patient's pain has been recalcitrant to further conservative measures. Therefore, based upon the patient's relief and persistent symptoms, the patient is considered an appropriate candidate for facet rhizotomy. All of the patient's questions regarding the risks versus benefits of the procedure, including, but not limited to, bleeding, infection, temporary as well as lasting nerve injury, paralysis, stroke, and , as well treatment alternatives were answered to satisfaction. After obtaining informed consent, denial of pertinent drug allergies, as well as being made aware of the potential risks of bleeding, infection, spinal cord trauma, paralysis, temporary and permanent nerve damage, seizure, stroke, and possible , the patient was brought to the fluoroscopy suite and positioned prone on the fluoroscopy table. After review of previous anaesthesic history and IV conscious sedation the patient was deemed safe to proceed with today's procedure with IV conscious sedation as ASA class II designation. Safety time-out was performed to confirm patient ID, procedure to be performed and site of procedure. IV sedation was accomplished with a combination of 3mg of Versed administered by the RN after DO order, titrated to patient comfort during the course of the procedure while the patient remained responsive to all verbal commands. The lumbar region was prepped in usual sterile fashion and covered with a fenestrated drape in the usual sterile fashion. Appropriate monitors applied including pulse oximeter, pulse, and blood pressure for regular monitoring throughout the procedure. After local infiltration using 1% lidocaine, under fluoroscopic guidance, a 10- cm RF insulated needle with a 10-mm active tip was positioned parallel to the junction of the right the superior articulating process where the L5 medial branch resides. Needle placement was confirmed with motor stimulation of .5v on the right which produced local stimulation without radicular component. The stimulation was then increased to 2v with, once again, only local multifidus stimulation without radicular component. The needle was then removed and the identical procedure was performed along the length of the right L4 medial branch with motor stimulation at .7v on the right. The identical procedure was once again performed along the length of the right L3 and medial branch with motor s timulation of .5v on the right. The medial branches were then anesthetised with 0.5% marcaine. This was then followed by two discreet lesions performed at 80 degrees Celsius for 90 seconds each. The identical procedures were repeated on the left. The patient tolerated the procedure well without signs or symptoms of complications prior to transfer to the recovery area continued monitoring without incident. The patient was then transferred to the recovery area where they were observed for an appropriate period of time after the injection. The patient reported a VAS score of 9 prior to the procedure and a post-procedure VAS of 0. POST OP INSTRUCTIONS The patient was provided a Pain Log to continue to record the patient's response to the target-specific procedure prior to the patient's follow-up visit with the referring physician. Additionally, specific post-injection care instructions and a contact number to our office were provided if concerns arise regarding possible complications associated with the procedure are suspected.
== END 2025-05-01 09:50 | disposition home or self-care (01) ==
LOC: RAD 07:35
PROVIDERS: PCP Family Medicine; Referring Provider Physical Medicine & Rehabilitation; Visit Provider Physical Medicine & Rehabilitation
DX: M47.816 Spondylosis without myelopathy or radiculopathy, lumbar region (principal); M48.061 Spinal stenosis, lumbar region without neurogenic claudication
CPT/HCPCS: 64635; 64636; 99152; 99153; J2250